=== PATIENT | male | born 1950 | race Caucasian/White ===

== ENCOUNTER 2024-01-04 07:23 | Day surgery (SDC) | payer MEDICARE, OTHER, SELFPAY ==
[2024-01-04] VITALS (14 sets, daily range): BP systolic 130–148; BP diastolic 55–77; BMI 32.8
[2024-01-04] MEDS: NSS 320 ML IV (07:56)
[2024-01-04] MEDS: LOW STRENGTH ASPIRIN 81 MG PO (07:57)
[2024-01-04 08:02] LABS: Glucose - Point of Care 133 mg/dl (70-99)
--- NOTE | 2024-01-04 09:52 | ITS.CL.CATH ---
Slasher Hand - Catheterization
Cardiac Catheterization
Procedure Report:
LEFT HEART CATHETERIZATION
Date of Procedure: January 04, 2024
Procedures performed:
1: Coronary angiography
2: Left ventriculography
Primary Care Physician: Dr. Myles Francisco
Primary Miller Helper: Dr. Иван Herrera
INDICATION: The patient is a 73-year-old man with a complex past medical history including coronary artery disease status post multivessel stenting in 2019, severe peripheral arterial disease status post complex bilateral common femoral
endarterectomy with femorofemoral bypass complicated by infection requiring multiple washouts as well as a free flap graft and ongoing antibiotic suppression, hypertension, COPD, and status post pacemaker for sick sinus syndrome who is reporting
increased fatigue and exertional dyspnea. Nuclear stress testing performed on November 25 suggested fixed infarct in the RCA vascular distribution with only mild mich-infarct ischemia and echocardiography performed December 29 showed preserved LV
systolic function with no significant change from April 2022. Because of his complex groin infection issues, any groin access if necessary would be highly risky.
ACCESS: The patient was prepped and draped in usual sterile fashion. A 6 Japanese sheath was placed in the right radial artery using the Seldinger over the wire technique.
HEMODYNAMIC FINDINGS (mmHg):
LV(s/d,EDP): 135/10, 15
Ao(s/d,m): 130/65, 87
ANGIOGRAPHIC FINDINGS:
Single-plane Left Ventriculography in [facility] Projection: Not done.
Coronary Angiography:
Dominance: Right
Left Main: Heavily calcified but widely patent. Large caliber.
Left Anterior Descending: The left anterior descending artery is heavily calcified throughout its course. The previously placed mid LAD stent is widely patent with diffuse 20% and at worst proximal 40% in-stent restenosis. There are 2 medium
caliber diagonal branches which are widely patent. All vessels have normal distal flow.
Left Circumflex: The left circumflex artery is a medium caliber nondominant vessel that gives rise to a large bifurcating first obtuse marginal branch that has a smooth proximal 50 to 60% stenosis with normal distal flow. The distal circumflex
gives rise to 2 smaller distal OM's that are widely patent. There is [id number] collaterals filling the right-sided PDA and PLV branch system.
Right Coronary: The right coronary artery is a large-caliber vessel that is extensively stented throughout the AV groove. There is a new chronic total occlusion of the ostial/proximal RCA with faint bridging collaterals noted. The distal vessels
fill via faint antegrade collaterals but mostly through [id number] collaterals.
Fluoroscopy Time (min): 3.1
Radiation Dose (mGy): 356
DAP (Gy.cm2): 25
Closure device: None. A TR band was applied for hemostasis at the right wrist.
Complications: None.
ASSESSMENT:
1: Severe single-vessel coronary disease with interval RCA occlusion. This territory is mostly infarcted on nuclear perfusion imaging and is well collateralized from a widely patent left coronary system.
2: Patent previously placed LAD stent with nonobstructive disease in the circumflex as described above.
3: Normal to mildly elevated left ventricular filling pressures.
CONCLUSIONS and RECOMMENDATIONS:
1: Medical therapy for coronary artery disease. Will add amlodipine 2.5 mg daily to Imdur and beta-ismael therapy.
2: Clinical follow-up as scheduled.
Ingrid Wayne M.D.
Copy to: Dr. Myles Francisco
[2024-01-04] MEDS: NSS 1000 IV (10:01)
[2024-01-04 10:06] LABS: Glucose - Point of Care 122 mg/dl (70-99)
== END 2024-01-04 13:20 | disposition home or self-care (01) ==
LOC: CATH 07:23
PROVIDERS: ATTENDING PHYSICIAN Internal Medicine Interventional Cardiology; FAMILY PHYSICIAN Family Medicine; OTHER PHYSICIAN Internal Medicine Cardiovascular Disease
DX: I25.10 Atherosclerotic heart disease of native coronary artery without angina pectoris (principal); Z95.5 Presence of coronary angioplasty implant and graft; I48.91 Unspecified atrial fibrillation; R53.83 Other fatigue; R06.09 Other forms of dyspnea; I10 Essential (primary) hypertension; J44.9 Chronic obstructive pulmonary disease, unspecified; Z95.0 Presence of cardiac pacemaker; I49.5 Sick sinus syndrome; I73.9 Peripheral vascular disease, unspecified; K21.9 Gastro-esophageal reflux disease without esophagitis; E78.00 Pure hypercholesterolemia, unspecified; E11.9 Type 2 diabetes mellitus without complications; Z79.82 Long term (current) use of aspirin; Z79.84 Long term (current) use of oral hypoglycemic drugs; Z79.02 Long term (current) use of antithrombotics/antiplatelets
CPT/HCPCS: 82962; 93458; C1894; Q9967

== ENCOUNTER → 2024-01-19 10:51 | Outpatient (REF) | payer MEDICARE, OTHER, SELFPAY | LOC: RAD 10:51 | PROVIDERS: ATTENDING PHYSICIAN Specialist; FAMILY PHYSICIAN Family Medicine | DX: R13.10 Dysphagia, unspecified (principal) | CPT/HCPCS: 74246 ==

== ENCOUNTER → 2024-04-05 15:50 | Outpatient (REF) | payer MEDICARE, OTHER, SELFPAY ==
[2024-04-05 16:41] LABS: Hemoglobin 11.2 g/dL (13.0-18.0); Mean Corp Hgb Conc. 32.9 g/dL (33.0-37.0); Mean Corpuscular Hgb 29.3 pg (27.0-31.0); Mean Platelet Volume 9.1 fL (7.4-10.4); Platelet Count 230 10^3/uL (130-400); Red Blood Cell Count 3.82 10^6/uL (4.70-6.10); Red Cell Dist. Width 13.2 % (11.5-14.5)
[2024-04-05 17:01] LABS: Iron 47 ug/dl (49-181); LDH 176 U/L (120-246)
[2024-04-05 17:10] LABS: Percent Saturation 19 % (20-50); Total Iron Binding Capacity 247 ug/dl (261-462)
[2024-04-05 17:18] LABS: Atypical Lymphocytes 4 %; Band Neutrophils 0 % (0-3); Eosinophils 10 % (0-6); Lymphocytes 47 % (20-51); Monocytes 22 % (2-9); Pathologist Reviewed No; Segmented Neutrophils 17 % (42-75)
[2024-04-05 17:19] LABS: Normal RBC Morphology Yes; Platelets Checked Yes; Total Cells Counted 100
[2024-04-05 17:33] LABS: Absolute Neutrophils 0.5 10^3/uL (1.4-6.5)
[2024-04-05 17:39] LABS: Ferritin 74.9 ng/ml (17.9-464.0)
[2024-04-05 18:11] LABS: Folate 7.9 ng/ml (2.76-20); Vitamin B12 369 pg/ml (239-931)
== END ==
LOC: REG 15:50
PROVIDERS: ATTENDING PHYSICIAN Internal Medicine Hematology & Oncology
DX: C83.89 Other non-follicular lymphoma, extranodal and solid organ sites (principal); R22.32 Localized swelling, mass and lump, left upper limb; D50.9 Iron deficiency anemia, unspecified; D51.9 Vitamin B12 deficiency anemia, unspecified
CPT/HCPCS: 36415; 82607; 82728; 82746; 83540; 83550; 83615; 85025

== ENCOUNTER → 2024-05-08 12:56 | Outpatient (REF) | payer MEDICARE, OTHER, SELFPAY ==
[2024-05-08 14:49] LABS: Urine Albumin Negative (Neg - Trace); Urine Bilirubin Negative (Negative); Urine Character Clear (Clear); Urine Color Yellow; Urine Glucose Negative (Negative); Urine Ketone Negative (Negative); Urine Leukocyte Negative (Negative); Urine Nitrite Negative (Negative); Urine Occult Blood Negative (Negative); Urine Urobilinogen Negative (Neg - 1+)
== END ==
LOC: CLAB 12:56
PROVIDERS: ATTENDING PHYSICIAN Surgery
DX: N39.0 Urinary tract infection, site not specified (principal)
CPT/HCPCS: 81003; 87086

== ENCOUNTER → 2024-05-25 09:22 | Outpatient (REF) | payer MEDICARE, OTHER, SELFPAY ==
[2024-05-25 10:20] LABS: % Lymphocytes 41.1 % (20.5-51.1); % Monocytes 15.7 % (1.7-9.3); % Neutrophils 38.2 % (42.2-75.2); Absolute Eosinophils 0.2 10^3/uL (0-0.7); Absolute Lymphocytes 1.7 10^3/uL (1.2-3.4); Absolute Monocytes 0.6 10^3/uL (0.1-0.6); Absolute Neutrophils 1.5 10^3/uL (1.4-6.5); Hematocrit 35.5 % (39.0-52.0); Hemoglobin 11.4 g/dL (13.0-18.0); Mean Corp Hgb Conc. 32.1 g/dL (33.0-37.0); Mean Corpuscular Hgb 28.8 pg (27.0-31.0); Mean Corpuscular Volume 89.6 fL (80.0-94.0); Mean Platelet Volume 9.1 fL (7.4-10.4); Nucleated Red Blood Cells % 0 % (-); Platelet Count 227 10^3/uL (130-400); Red Blood Cell Count 3.96 10^6/uL (4.70-6.10)
[2024-05-25 10:37] LABS: ALT (SGPT) 19 U/L (0-50); AST (SGOT) 28 U/L (17-59); Albumin 4.1 g/dl (3.5-5.0); Alkaline Phosphatase 134 U/L (38-126); Blood Urea Nitrogen 10 mg/dl (9-20); Calcium 9.1 mg/dl (8.4-10.2); Carbon Dioxide 30 mmol/L (22-30); Chloride 102 mmol/L (98-107); Glucose 128 mg/dl (70-99); Iron 73 ug/dl (49-181); LDH 170 U/L (120-246); Potassium 4.2 mmol/L (3.5-5.1); Sodium 140 mmol/L (135-145); Total Bilirubin 0.4 mg/dl (0.2-1.3); Total Protein 7.4 g/dl (6.3-8.2); eGFR > 60.00
[2024-05-25 10:47] LABS: Percent Saturation 31 % (20-50); Total Iron Binding Capacity 231 ug/dl (261-462)
[2024-05-25 10:55] LABS: Free T4 1.01 ng/dl (0.78-2.19)
[2024-05-25 11:08] LABS: TSH 4.31 uIU/ml (0.47-4.68)
[2024-05-25 11:45] LABS: Folate 7.2 ng/ml (2.76-20); Vitamin B12 694 pg/ml (239-931)
[2024-05-28 00:06] LABS: Total T3 (Sendout) 105 ng/dL (80-200)
== END ==
LOC: REG 09:22
PROVIDERS: ATTENDING PHYSICIAN Internal Medicine Hematology & Oncology
DX: C83.89 Other non-follicular lymphoma, extranodal and solid organ sites (principal); R22.32 Localized swelling, mass and lump, left upper limb; D50.9 Iron deficiency anemia, unspecified; C43.72 Malignant melanoma of left lower limb, including hip; D51.9 Vitamin B12 deficiency anemia, unspecified; E78.5 Hyperlipidemia, unspecified
CPT/HCPCS: 36415; 80053; 82607; 82728; 82746; 83540; 83550; 83615; 84439; 84443; 84480; 85025

== ENCOUNTER → 2024-06-08 08:35 | Outpatient (REF) | payer MEDICARE, OTHER, SELFPAY | LOC: RAD 08:35 | PROVIDERS: ATTENDING PHYSICIAN Internal Medicine Hematology & Oncology; REFERRING PHYSICIAN Otolaryngology | DX: C83.89 Other non-follicular lymphoma, extranodal and solid organ sites (principal); R22.32 Localized swelling, mass and lump, left upper limb; D50.9 Iron deficiency anemia, unspecified; C43.72 Malignant melanoma of left lower limb, including hip; D38.0 Neoplasm of uncertain behavior of larynx | CPT/HCPCS: 70470; 70491; Q9967 ==

== ENCOUNTER → 2024-06-19 08:52 | Outpatient (REF) | payer MEDICARE, OTHER, SELFPAY ==
[2024-06-19 11:46] LABS: Hematocrit 32.9 % (39.0-52.0); Hemoglobin 11.1 g/dL (13.0-18.0); Mean Corp Hgb Conc. 33.7 g/dL (33.0-37.0); Mean Corpuscular Hgb 29.3 pg (27.0-31.0); Mean Corpuscular Volume 86.8 fL (80.0-94.0); Mean Platelet Volume 9.1 fL (7.4-10.4); Platelet Count 211 10^3/uL (130-400); Red Blood Cell Count 3.79 10^6/uL (4.70-6.10); Red Cell Dist. Width 14.3 % (11.5-14.5); White Blood Cell Count 2.7 10^3/uL (4.8-10.8)
[2024-06-19 12:08] LABS: ALT (SGPT) 10 U/L (0-50); AST (SGOT) 19 U/L (17-59); Albumin 3.9 g/dl (3.5-5.0); Alkaline Phosphatase 123 U/L (38-126); Blood Urea Nitrogen 14 mg/dl (9-20); Calcium 9.3 mg/dl (8.4-10.2); Carbon Dioxide 27 mmol/L (22-30); Chloride 105 mmol/L (98-107); Glucose 110 mg/dl (70-99); Potassium 4.2 mmol/L (3.5-5.1); Sodium 141 mmol/L (135-145); Total Bilirubin 0.6 mg/dl (0.2-1.3); Total Protein 6.9 g/dl (6.3-8.2); eGFR > 60.00
[2024-06-19 12:17] LABS: Absolute Neutrophils -Man Diff 0.3 10^3/uL (1.4-6.5); Band Neutrophils 6 % (0-3); Eosinophils 6 % (0-6); Lymphocytes 50 % (20-51); Metamyelocytes 1 % (-); Monocytes 30 % (2-9); Normal RBC Morphology Yes; Platelets Checked Yes; Segmented Neutrophils 7 % (42-75)
[2024-06-19 12:22] LABS: Total Cells Counted 100
[2024-06-19 12:39] LABS: TSH 2.48 uIU/ml (0.47-4.68)
[2024-06-21 01:30] LABS: Total T3 (Sendout) 85 ng/dL (80-200)
== END ==
LOC: DHVS 08:52
PROVIDERS: ATTENDING PHYSICIAN Surgery Vascular Surgery; REFERRING PHYSICIAN Internal Medicine Hematology & Oncology
DX: I73.9 Peripheral vascular disease, unspecified (principal); C83.89 Other non-follicular lymphoma, extranodal and solid organ sites; R22.32 Localized swelling, mass and lump, left upper limb; D50.9 Iron deficiency anemia, unspecified; C43.72 Malignant melanoma of left lower limb, including hip; E78.5 Hyperlipidemia, unspecified
CPT/HCPCS: 36415; 80053; 84439; 84443; 84480; 85025; 93922; 93925

== ENCOUNTER 2024-07-02 16:12 | Emergency (ER) | payer MEDICARE, OTHER, SELFPAY ==
[2024-07-02 16:53] LABS: Hematocrit 33.5 % (39.0-52.0); Hemoglobin 10.9 g/dL (13.0-18.0); Mean Corp Hgb Conc. 32.5 g/dL (33.0-37.0); Mean Corpuscular Hgb 28.9 pg (27.0-31.0); Mean Corpuscular Volume 88.9 fL (80.0-94.0); Mean Platelet Volume 9.6 fL (7.4-10.4); Platelet Count 191 10^3/uL (130-400); Red Blood Cell Count 3.77 10^6/uL (4.70-6.10); Red Cell Dist. Width 14.6 % (11.5-14.5); White Blood Cell Count 28.5 10^3/uL (4.8-10.8)
[2024-07-02 17:11] LABS: ALT (SGPT) 11 U/L (0-50); AST (SGOT) 19 U/L (17-59); Albumin 3.3 g/dl (3.5-5.0); Alkaline Phosphatase 132 U/L (38-126); Blood Urea Nitrogen 14 mg/dl (9-20); Calcium 8.3 mg/dl (8.4-10.2); Carbon Dioxide 27 mmol/L (22-30); Chloride 106 mmol/L (98-107); Glucose 150 mg/dl (70-99); Potassium 3.6 mmol/L (3.5-5.1); Sodium 141 mmol/L (135-145); Total Bilirubin 0.3 mg/dl (0.2-1.3); Total Protein 6.1 g/dl (6.3-8.2); eGFR > 60.00
[2024-07-02 18:00] LABS: % Basophils 0.5 % (0-2); % Eosinophils 0.5 % (0-6); % Immature Granulocytes 2.5 % (0-0.5); % Monocytes 4.5 % (1.7-9.3); Absolute Basophils 0.1 10^3/uL (0-0.2); Absolute Eosinophils 0.1 10^3/uL (0-0.7); Absolute Immature Granulocytes 0.7 10^3/uL (0-0.05); Absolute Monocytes 1.3 10^3/uL (0.1-0.6); Absolute Neutrophils 24.2 10^3/uL (1.4-6.5); Nucleated Red Blood Cells % 0 % (-)
[2024-07-02 18:08] VITALS: BMI 32.2
[2024-07-02 18:16] VITALS: BP 119/60
[2024-07-02] MEDS: NSS 500 IV (18:16)
--- NOTE | 2024-07-02 18:18 | ED.GENMED ---
History of Present Illness
General
Chief Complaint: Abdominal Symptoms
Source: patient
Exam Limitations: none
Time Seen by Provider: 07/02/24 17:58
History of Present Illness
History of Present Illness:
This is a 74 year old male that comes in with c/o diarrhea for 3 weeks. States that he is being treated for Cancer and is on Kaytruda. States that his Oncologist said that it could be due to this. States that he has abd tenderness all over, has
been nauseated and vomiting. States that his appetite is decreased. States that he also has a headache. Denies any fever, chills, chest pain, SOB, dizziness, urinary burning.
Past History
Past History
ED Past Medical History: Arrthythmia (A FIB), CAD, Cancer (Melanoma, B-cell Non Hodgkins lymphoma, Prostate CA), COPD, GERD, HTN, Hypercholesterolemia, IDDM, Psychiatric (Anxiety, Depression) and Other (Neuropathy, Balance issues, Tremors, CPAP,
AAA, Iron def anemia, ADHD)
ED Past Surgical History: Cardiac (Pacemaker, Stents X 6 (two are occluded) ), Orthopedic (C2-C7 fusion, Left ankle surgery, Right total hip replacement, Right femoral bypass, ) and Other (Stent left groin, Gastric bypass, Cataracts)
Social History
Tobacco: Former smoker
Alcohol: None
Drug: None
Personal:
Living: alone
Review of Systems
Review of Systems
All Other Systems: ROS reviewed and negative except as documented in HPI and ROS
Constitutional: Reports no symptoms; Denies fever or chills
EENT: Reports no symptoms
Respiratory: Reports no symptoms; Denies cough or trouble breathing
Cardiac: Reports no symptoms; Denies chest pain
ABD/GI: Reports abdominal pain, nausea, vomiting and diarrhea
: Reports no symptoms; Denies dysuria, frequency or urgency
Musculoskeletal: Reports no symptoms
Skin: Reports no symptoms
Neurological: Reports headache; Denies dizzy
Psychiatric: Reports no symptoms
Phy Exam
General Physical Exam
General Presentation: no apparent distress
General age: appears stated age
General Skin: warm and dry
General Habitus: elderly
General Mental: alert
General Hydration: appears well hydrated
ENT Exam
ENT Exam: TM's normal, pharynx normal and neck supple
Eye Exam
Eye Exam: EOMI
Cardiovascular Exam
Cardiovascular Exam: regular rate/rhythm, normal peripheral pulses and other (Murmur)
Pulmonary Exam
Pulmonary Exam: lungs clear, no respiratory distress, no rales, chest non tender, no crackles, no rhonchi, no wheezing and no cough
Gastrointestinal Exam
Gastrointestinal Exam: normal bowel sounds, soft, no organomegaly, no pulsatile mass, non distended and tender (Generalized tenderness with palpation)
Musculoskeletal Exam
Musculoskeletal Exam: full ROM and edema (+1 pitting edema lower legs)
Skin Exam
Skin Exam: normal color, warm/dry, no rash and no petechia
Psychiatric Exam
Psychiatric Exam: normal mood/affect
Course
Orders/Labs/Results
Orders:
Orders
07/02/24 16:33
Complete Blood Count/With Diff Urgent
Comprehensive Metabolic Panel Urgent
07/02/24 18:15
0.9% Sodium Chloride 500 ml [Nss] 500 ml IV BOLUS
07/02/24 18:17
CT Abd/pelvis W Iv Cont Urgent
Comment:
Reason For Exam: Generalized abd tenderness with palpation
STOOL [C difficile Antigen & Toxins] Urgent
REGIS Source: Feces/Stool
Specimen Description:
Stool Culture Urgent
REGIS Source: Feces/Stool
Specimen Description:
Stool For WBC Urgent
REGIS Source: Feces/Stool
Specimen Description:
Abnormal Lab Results
07/02/24
16:33
WBC 28.5 H 10^3/uL
(4.8-10.8)
RBC 3.77 L 10^6/uL
(4.70-6.10)
Hgb 10.9 L g/dL
(13.0-18.0)
Hct 33.5 L %
(39.0-52.0)
MCHC 32.5 L g/dL
(33.0-37.0)
RDW 14.6 H %
(11.5-14.5)
Abs Immat Gran (auto) 0.7 H 10^3/uL
(0-0.05)
Absolute Neuts (auto) 24.2 H 10^3/uL
(1.4-6.5)
Absolute Monos (auto) 1.3 H 10^3/uL
(0.1-0.6)
Immature Gran % 2.5 H %
(0-0.5)
Neutrophils % 85.0 H %
(42.2-75.2)
Lymphocytes % 7.0 L %
(20.5-51.1)
Glucose 150 H mg/dl
(70-99)
Calcium 8.3 L mg/dl
(8.4-10.2)
Alkaline Phosphatase 132 H U/L
(38-126)
Total Protein 6.1 L g/dl
(6.3-8.2)
Albumin 3.3 L g/dl
(3.5-5.0)
07/02/24 16:33
07/02/24 16:33
Leukocytosis (Patient getting injections due to Chemo), H/H low( consistent with priot labs), Abs Neuts elevated. Glucose nonfasting. Alk phos slightly elevated. Total protein slightly low. Albumin slightly low.
Vital Signs
Initial and Last Documented VS:
Initial Vital Signs
Temp Pulse Resp Pulse Ox
98.8 F 70 18 97
07/02/24 16:23 07/02/24 16:23 07/02/24 16:23 07/02/24 16:23
Last Documented Vital Signs
Temp Pulse Resp BP Pulse Ox
98.8 F 70 16 119/60 94
07/02/24 16:23 07/02/24 18:16 07/02/24 18:16 07/02/24 18:16 07/02/24 18:16
MDM/Problems Addressed
Differential Diagnosis Includes:
Medication related. C-diff, Colitis.
MDM/Problems Addressed:
This is a 74 year old male that comes in with c/o abd discomfort and diarrhea for he past 3 weeks. States that he has never had diarrhea like this. States that the Oncologist said that it could be due to Keytruda.
Will get labs, CT scan, IV fluids.
Back into see patient. Explained that his blood work shows his elevated WBC which is most likely due to his injections that he is getting. CT is negative for any acute process. Will have patient stay away form Milk and milk products. Follow up with
the Oncologist. Increase his water intake to 8-8oz glasses daily. Return with any concerns.
Chronic conditions affecting care: Cancer
Acute Exacerbation and/or Progression of Chronic Illness: Cancer
*Radiology
Radiology exam reviewed: radiology read reviewed (CT-Prominent gallbladder with possible tiny stones. IF clinically warranted, abdominal ultasound could be obtaiined for more complete evaluation. Symmetric renal excretion. Small simple left renal
cyst. Subcentimeter low-attenuation right renal lesion too small to characterize. Marked beam hardening) and all reviewed NAD by ED Provider (CT cont-artifact from right hip arthroplasty significantly limiting evaluation of the soft tissues of the
true pelvis. Scattered splenic calcifications again seen compatible with old granulomatous disease. )
*Pulse Oximetry
Patient hypoxic: no
*EKG
Interpreted by ED Provider?: NA
Rate: EKG- N/A
*Tentmaker Interpretation
Rate: Tentmaker- N/A
*Critical Care Note
Total Time (30-74mins, 75-104mins- exclusive of procedures): Not Applicable
ED Attending Note
-
Portions of this chart may have been created with voice recognition software.� Occasional wrong word or��sound alike� substitutions may have occurred due to the inherent limitations of voice recognition software.
Discharge Plan
Departure
Patient Disposition: Home (Routine Discharge)
Date of Disposition: 07/02/24
Time of Disposition: 20:25
Patient with high blood pressure during this ER visit?: No
Condition: Good
Covid-19: Not Applicable
Discharge Problem:
Abdominal pain, Diarrhea
Instructions: Diarrhea in teens and adults, Abdominal Pain
Prescriptions:
No Action
modafinil 200 MG tablet
200 mg PO BID Qty: 60 0RF
pravastatin 40 MG tablet
40 mg PO HS
aspirin 81 MG tablet,delayed release (DR/EC)
81 mg PO HS
nitroglycerin 0.4 MG tablet, sublingual
0.4 mg sublingual [id number] PRN (Reason: chest pain)
furosemide 40 MG tablet
40 mg PO DAILY
metoprolol succinate 50 mg Tablet Extended Release 24 Hr
50 mg PO HS
albuterol sulfate 2.5 mg /3 mL (0.083 %) Solution For Nebulization
2.5 mg INHALATION R Q4 PRN (Reason: sob)
Janumet XR 100-1,000 mg Tablet, Er Multiphase 24 Hr
1 tab PO DAILY@1999
clopidogrel 75 MG tablet
75 mg PO DAILY@1999
isosorbide mononitrate 30 mg Tablet Extended Release 24 Hr
60 mg PO DAILY
gabapentin 300 mg Capsule
600 mg PO QID@08,12,16,20
budesonide-formoterol [Symbicort] 160-4.5 mcg/actuation Hfa Aerosol Inhaler
2 puff INHALATION BID
sulfamethoxazole-trimethoprim 800-160 mg Tablet
1 tab PO DAILY Qty: 0 0RF
duloxetine 30 mg Capsule,Delayed Release(Dr/Ec)
30 mg PO DAILY
lamotrigine [Lamictal ODT] 50 mg Tablet,Disintegrating
50 mg PO DAILY
amlodipine 2.5 mg tablet
2.5 mg PO DAILY Qty: 1 0RF
Referrals:
UNKNOWN - PT DOES,NOT KNOW [Family Provider] -
Activity Restrictions/Additional Instructions:
As discussed, your blood work shows that your WBC are elevated. Your Hgb is slightly low. Your CT scan is negative for any acute process that would cause your diarrhea. Please increase your water intake to 8-8oz daily. Follow up with the Oncologist
for further evaluation. A stool specimen has been sent. IF this would come back showing C-diff you will be called and started on an antibiotic. IF YOU HAVE FEVER, INCREASED OR CHANGING ABD PAIN, OR YOU HAVE ANY OTHER CONCERNS PLEASE RETURN TO THE
EMERGENCY ROOM.
Interventions
Interventions:
*Risk Screen - Suicide Last Done: 07/02/24 16:23
*General Assessment Last Done: 07/02/24 16:23
*Neglect/Abuse Screening Last Done: 07/02/24 16:23
*ED COVID-19 Vaccine History Last Done: 07/02/24 16:23
CQ-Bhztqu-Ncsfpkehbw Assessment Last Done: 07/02/24 18:06
Discharge Date and Time
Print Language: DJIBOUTIAN
[2024-07-02 20:53] VITALS: BP 125/54
== END 2024-07-02 20:55 | disposition home or self-care (01) ==
LOC: EMR 16:12
PROVIDERS: Emergency Medicine; EMERGENCY PHYSICIAN Student in an Organized Health Care Education/Training Program
DX: R10.9 Unspecified abdominal pain (principal); R19.7 Diarrhea, unspecified; R11.2 Nausea with vomiting, unspecified; R51.9 Headache, unspecified; N28.1 Cyst of kidney, acquired; D73.89 Other diseases of spleen; C43.9 Malignant melanoma of skin, unspecified; I48.91 Unspecified atrial fibrillation; I25.10 Atherosclerotic heart disease of native coronary artery without angina pectoris; J44.9 Chronic obstructive pulmonary disease, unspecified; E78.00 Pure hypercholesterolemia, unspecified; E11.36 Type 2 diabetes mellitus with diabetic cataract; F32.A Depression, unspecified; F41.9 Anxiety disorder, unspecified; I10 Essential (primary) hypertension; K21.9 Gastro-esophageal reflux disease without esophagitis; F90.9 Attention-deficit hyperactivity disorder, unspecified type; Z95.0 Presence of cardiac pacemaker; Z95.5 Presence of coronary angioplasty implant and graft; Z96.641 Presence of right artificial hip joint; Z79.4 Long term (current) use of insulin; Z79.82 Long term (current) use of aspirin; Z85.46 Personal history of malignant neoplasm of prostate; Z85.72 Personal history of non-Hodgkin lymphomas; Z87.891 Personal history of nicotine dependence; M43.22 Fusion of spine, cervical region; Z98.84 Bariatric surgery status; Z88.1 Allergy status to other antibiotic agents; Z88.8 Allergy status to other drugs, medicaments and biological substances
CPT/HCPCS: 99285; 96360; 74177; 80053; 85025; 87045; 87046; 87324; 87427; 87449; 89055; Q9967

== ENCOUNTER → 2024-07-04 13:25 | Outpatient (REF) | payer MEDICARE, OTHER, SELFPAY ==
[2024-07-04 11:51] LABS: % Basophils 0.2 % (0-2); % Eosinophils 0.8 % (0-6); % Immature Granulocytes 0.7 % (0-0.5); % Lymphocytes 9.6 % (20.5-51.1); % Monocytes 6.1 % (1.7-9.3); % Neutrophils 82.6 % (42.2-75.2); Absolute Eosinophils 0.1 10^3/uL (0-0.7); Absolute Immature Granulocytes 0.1 10^3/uL (0-0.05); Absolute Lymphocytes 1.6 10^3/uL (1.2-3.4); Absolute Neutrophils 13.8 10^3/uL (1.4-6.5); Hematocrit 34.3 % (39.0-52.0); Hemoglobin 11.1 g/dL (13.0-18.0); Mean Corp Hgb Conc. 32.4 g/dL (33.0-37.0); Mean Corpuscular Volume 89.6 fL (80.0-94.0); Mean Platelet Volume 9.4 fL (7.4-10.4); Platelet Count 191 10^3/uL (130-400); Red Blood Cell Count 3.83 10^6/uL (4.70-6.10); Red Cell Dist. Width 14.6 % (11.5-14.5); White Blood Cell Count 16.7 10^3/uL (4.8-10.8)
[2024-07-04 14:01] LABS: ALT (SGPT) 11 U/L (0-50); AST (SGOT) 23 U/L (17-59); Albumin 3.4 g/dl (3.5-5.0); Alkaline Phosphatase 145 U/L (38-126); Blood Urea Nitrogen 11 mg/dl (9-20); Calcium 8.3 mg/dl (8.4-10.2); Carbon Dioxide 28 mmol/L (22-30); Chloride 104 mmol/L (98-107); Glucose 103 mg/dl (70-99); Magnesium 1.7 mg/dl (1.6-2.3); Potassium 3.6 mmol/L (3.5-5.1); Sodium 139 mmol/L (135-145); Total Bilirubin 0.5 mg/dl (0.2-1.3); Total Protein 6.2 g/dl (6.3-8.2); eGFR > 60.00
== END ==
LOC: OIDL 13:25
PROVIDERS: ATTENDING PHYSICIAN Internal Medicine Hematology & Oncology
DX: C83.89 Other non-follicular lymphoma, extranodal and solid organ sites (principal)
CPT/HCPCS: 80053; 83735; 85025

== ENCOUNTER → 2024-07-06 11:55 | Outpatient (REF) | payer MEDICARE, OTHER, SELFPAY | LOC: REG 11:55 | PROVIDERS: ATTENDING PHYSICIAN Internal Medicine Hematology & Oncology | DX: C83.89 Other non-follicular lymphoma, extranodal and solid organ sites (principal); R22.32 Localized swelling, mass and lump, left upper limb; D50.9 Iron deficiency anemia, unspecified; C43.72 Malignant melanoma of left lower limb, including hip | CPT/HCPCS: 87045; 87046; 87324; 87328; 87329; 87427; 87449; 89055 ==

== ENCOUNTER → 2024-07-09 15:15 | Outpatient (REF) | payer MEDICARE, OTHER, SELFPAY ==
[2024-07-09 15:44] LABS: ALT (SGPT) 36 U/L (0-50); AST (SGOT) 34 U/L (17-59); Albumin 3.4 g/dl (3.5-5.0); Alkaline Phosphatase 187 U/L (38-126); Blood Urea Nitrogen 15 mg/dl (9-20); Calcium 8.7 mg/dl (8.4-10.2); Carbon Dioxide 29 mmol/L (22-30); Chloride 105 mmol/L (98-107); Glucose 151 mg/dl (70-99); Magnesium 2.1 mg/dl (1.6-2.3); Potassium 3.7 mmol/L (3.5-5.1); Sodium 141 mmol/L (135-145); Total Bilirubin 0.3 mg/dl (0.2-1.3); Total Protein 6.3 g/dl (6.3-8.2); eGFR > 60.00
[2024-07-09 15:53] LABS: NT-proBNP 1900 pg/ml
[2024-07-09 16:16] LABS: % Basophils 0.2 % (0-2); % Eosinophils 0.1 % (0-6); % Immature Granulocytes 1.5 % (0-0.5); % Lymphocytes 3.8 % (20.5-51.1); % Monocytes 1.7 % (1.7-9.3); % Neutrophils 92.7 % (42.2-75.2); Absolute Basophils 0.1 10^3/uL (0-0.2); Absolute Immature Granulocytes 0.4 10^3/uL (0-0.05); Absolute Monocytes 0.4 10^3/uL (0.1-0.6); Absolute Neutrophils 23.7 10^3/uL (1.4-6.5); Hemoglobin 10.8 g/dL (13.0-18.0); Mean Corp Hgb Conc. 32.7 g/dL (33.0-37.0); Mean Corpuscular Hgb 29.2 pg (27.0-31.0); Mean Corpuscular Volume 89.2 fL (80.0-94.0); Mean Platelet Volume 9.6 fL (7.4-10.4); Nucleated Red Blood Cells % 0 % (-); Platelet Count 276 10^3/uL (130-400); Red Cell Dist. Width 15.2 % (11.5-14.5); White Blood Cell Count 25.6 10^3/uL (4.8-10.8)
== END ==
LOC: OIDL 15:15
PROVIDERS: ATTENDING PHYSICIAN Nurse Practitioner Adult Health
DX: C83.89 Other non-follicular lymphoma, extranodal and solid organ sites (principal)
CPT/HCPCS: 80053; 83735; 83880; 85025

== ENCOUNTER → 2024-07-20 06:11 | Day surgery (SDC) | payer MEDICARE, OTHER, SELFPAY ==
[2024-07-20 08:25] LABS: Glucose - Point of Care 110 mg/dl (70-99)
== END ==
LOC: GI 06:11
PROVIDERS: ATTENDING PHYSICIAN Specialist
DX: R19.7 Diarrhea, unspecified (principal)
CPT/HCPCS: 45331; 88305; 82962; 88342

== ENCOUNTER 2024-08-01 10:28 | Emergency (ER) | payer MEDICARE, OTHER, SELFPAY ==
[2024-08-01 10:29] VITALS: BP 138/58
[2024-08-01 11:18] LABS: ALT (SGPT) 17 U/L (0-50); AST (SGOT) 18 U/L (17-59); Albumin 3.9 g/dl (3.5-5.0); Alkaline Phosphatase 93 U/L (38-126); Blood Urea Nitrogen 12 mg/dl (9-20); Calcium 9.1 mg/dl (8.4-10.2); Carbon Dioxide 32 mmol/L (22-30); Chloride 99 mmol/L (98-107); Glucose 188 mg/dl (70-99); Potassium 4.3 mmol/L (3.5-5.1); Sodium 141 mmol/L (135-145); Total Bilirubin 0.8 mg/dl (0.2-1.3); Total Protein 6.5 g/dl (6.3-8.2); eGFR > 60.00
[2024-08-01 11:20] LABS: Hematocrit 36.1 % (39.0-52.0); Hemoglobin 12.2 g/dL (13.0-18.0); Mean Corp Hgb Conc. 33.8 g/dL (33.0-37.0); Mean Corpuscular Hgb 29.5 pg (27.0-31.0); Mean Corpuscular Volume 87.2 fL (80.0-94.0); Mean Platelet Volume 9.9 fL (7.4-10.4); Platelet Count 183 10^3/uL (130-400); Red Blood Cell Count 4.14 10^6/uL (4.70-6.10); Red Cell Dist. Width 14.8 % (11.5-14.5); White Blood Cell Count 2.8 10^3/uL (4.8-10.8)
[2024-08-01 12:22] LABS: % Neutrophils 59.2 % (42.2-75.2)
[2024-08-01 12:30] LABS: % Eosinophils 3.2 % (0-6); % Immature Granulocytes 0.4 % (0-0.5); % Lymphocytes 21.1 % (20.5-51.1); % Monocytes 16.1 % (1.7-9.3); Absolute Eosinophils 0.1 10^3/uL (0-0.7); Absolute Lymphocytes 0.6 10^3/uL (1.2-3.4); Absolute Monocytes 0.5 10^3/uL (0.1-0.6); Absolute Neutrophils 1.7 10^3/uL (1.4-6.5); Nucleated Red Blood Cells % 0 % (-)
[2024-08-01] MEDS: DILAUDID 0.5 MG IV (12:36)
--- NOTE | 2024-08-01 12:42 | ED.GENMED ---
History of Present Illness
General
Chief Complaint: Male Genito-Urinary Symptoms
Source: patient
Time Seen by Provider: 08/01/24 11:26
History of Present Illness
History of Present Illness:
74-year-old male with past medical history of AAA, atrial fibrillation, CAD, status post femorofemoral bypass surgery with postoperative complication/infection presenting to the emergency department from outpatient vascular office for evaluation of
pain and swelling of the right groin with vascular surgery being concern for possible pseudoaneurysm versus infectious collection. Patient had been on prophylactic antibiotics but had self discontinued due to side effects from the medication and
did not wish to be restarted on any of these medications. He denies any fevers. He reported in triage increased urination but denies this to me but does admit to feeling fatigued. Patient is unaware of any fevers. He does admit to some diarrhea
which she states started after getting a Keytruda injection but this seems to be slightly improved from when it initially started a few weeks ago.
Past History
Past History
ED Past Medical History: Arrthythmia (A FIB), CAD, Cancer (Melanoma, B-cell Non Hodgkins lymphoma, Prostate CA), COPD, GERD, HTN, Hypercholesterolemia, IDDM, Psychiatric (Anxiety, Depression) and Other (Neuropathy, Balance issues, Tremors, CPAP,
AAA, Iron def anemia, ADHD)
ED Past Surgical History: Cardiac (Pacemaker, Stents X 6 (two are occluded) ), Orthopedic (C2-C7 fusion, Left ankle surgery, Right total hip replacement, Right femoral bypass, ) and Other (Stent left groin, Gastric bypass, Cataracts)
Social History
Tobacco: Former smoker
Alcohol: None
Drug: None
Personal:
Living: alone
Review of Systems
Review of Systems
All Other Systems: ROS reviewed and negative except as documented in HPI and ROS
Phy Exam
Physical Exam
Physical Exam:
GENERAL: Alert , in no apparent distress
EYE: clear conjunctiva b/l
HEAD: NCAT
ENT: o/p clr, mmm.
ABDOMEN: Soft, without focal tenderness, no r/g, no cvat,
NEUROLOGICAL: Alert and oriented
SKIN: Warm and dry, skin intact. Well-healed surgical incision to the right groin/thigh with moderate tenderness to palpation overlying. There is no overlying erythema.
MUSCULOSKELETAL: No edema, well perfused. Palpable femoral pulses b/l
PSYCH: Normal and appropriate interaction.
Scores
Heart Failure Risk
Heart Failure Risk Score: Not Applicable
Heart Score for Chest Pain Patients
STEMI patient?: Not applicable
Withdrawal Assessment of Alcohol
Withdrawal Assessment Completed?: Not applicable
Course
Orders/Labs/Results
Orders:
Orders
08/01/24 10:46
CMP [Comprehensive Metabolic Panel] Urgent
Complete Blood Count/With Diff Urgent
08/01/24 11:59
HYDROmorphone [Dilaudid] 0.5 mg IV NOW STA
08/01/24 12:27
CT Angio Abd/Pelvis w/wo IV [CT Abd/pelvis Angio W/wo Iv] Urgent
Comment:
Reason For Exam: right sided groin edema/pain, s/p fem-fem bypass
08/01/24 12:40
Urinalysis Reflex To Culture Urgent
Date Specimen was Collected: 08/01/24
Time Specimen was Collected: 12:38
Abnormal Lab Results
08/01/24
10:46
WBC 2.8 L 10^3/uL
(4.8-10.8)
RBC 4.14 L 10^6/uL
(4.70-6.10)
Hgb 12.2 L g/dL
(13.0-18.0)
Hct 36.1 L %
(39.0-52.0)
RDW 14.8 H %
(11.5-14.5)
Absolute Lymphs (auto) 0.6 L 10^3/uL
(1.2-3.4)
Monocytes % 16.1 H %
(1.7-9.3)
Carbon Dioxide 32 H mmol/L
(22-30)
Creatinine 0.6 L mg/dL
(0.7-1.3)
Glucose 188 H mg/dl
(70-99)
08/01/24 10:46
08/01/24 10:46
Vital Signs
Initial and Last Documented VS:
Initial Vital Signs
Temp Pulse Resp BP Pulse Ox
98.1 F 82 18 138/58 96
08/01/24 10:08/01/24 10:08/01/24 10:08/01/24 10:08/01/24 10:29
Last Documented Vital Signs
Temp Pulse Resp BP Pulse Ox
98.1 F 82 18 138/58 96
08/01/24 10:29 08/01/24 10:29 08/01/24 10:29 08/01/24 10:29 08/01/24 10:29
MDM/Problems Addressed
Differential Diagnosis Includes:
Pseudoaneurysm, seroma, abscess, postoperative pain
MDM/Problems Addressed:
74-year-old male presenting the emergency department for evaluation from outpatient vascular surgery office with concern for pseudoaneurysm versus infectious etiology status post femorofemoral bypass surgery. Patient without fevers. Notes moderate
pain at this time at rest. Vascular surgery requesting CT angio of the abdomen and pelvis. They will consult pending completion of CT. Half milligram of Dilaudid ordered for pain control.
Chronic conditions affecting care: Other (Previous vascular disease/surgery)
*Radiology
Radiology exam reviewed: radiology read reviewed
*Pulse Oximetry
Patient hypoxic: no
*Critical Care Note
Total Time (30-74mins, 75-104mins- exclusive of procedures): Not Applicable
Data Reviewed
Review of Other/Old Records Reveals: Labs, Records, Operative Reports and Discharge Summary
Source: patient and records
Patient Management
Discussion with other providers: Senior It Business Analyst
Escalation/DeEscalation of care consider admission/obs:
Patient seen by vascular team. No acute issues on CTA. No further recommendations. Can continue outpatient course of treatments. Stable for d/c home.
Patient updated on all findings. Aware of return precautions to the ER.
ED Attending Note
-
Portions of this chart may have been created with voice recognition software.� Occasional wrong word or��sound alike� substitutions may have occurred due to the inherent limitations of voice recognition software.
Discharge Plan
Departure
Patient Disposition: Home (Routine Discharge)
Date of Disposition: 08/01/24
Time of Disposition: 14:01
Patient with high blood pressure during this ER visit?: No
Discharge Problem:
Post-operative pain, Leukopenia
Instructions: Femoropopliteal Bypass Surgery (DC)
Prescriptions:
No Action
modafinil 200 MG tablet
200 mg PO BID Qty: 60 0RF
pravastatin 40 MG tablet
40 mg PO HS
aspirin 81 MG tablet,delayed release (DR/EC)
81 mg PO HS
nitroglycerin 0.4 MG tablet, sublingual
0.4 mg sublingual [id number] PRN (Reason: chest pain)
furosemide 40 MG tablet
40 mg PO DAILY
metoprolol succinate 50 mg Tablet Extended Release 24 Hr
50 mg PO HS
albuterol sulfate 2.5 mg /3 mL (0.083 %) Solution For Nebulization
2.5 mg INHALATION R Q4 PRN (Reason: sob)
Janumet XR 100-1,000 mg Tablet, Er Multiphase 24 Hr
1 tab PO DAILY@1999
clopidogrel 75 MG tablet
75 mg PO DAILY@1999
isosorbide mononitrate 30 mg Tablet Extended Release 24 Hr
60 mg PO DAILY
gabapentin 300 mg Capsule
600 mg PO QID@08,12,16,20
budesonide-formoterol [Symbicort] 160-4.5 mcg/actuation Hfa Aerosol Inhaler
2 puff INHALATION BID
sulfamethoxazole-trimethoprim 800-160 mg Tablet
1 tab PO DAILY Qty: 0 0RF
duloxetine 30 mg Capsule,Delayed Release(Dr/Ec)
30 mg PO DAILY
lamotrigine [Lamictal ODT] 50 mg Tablet,Disintegrating
50 mg PO DAILY
amlodipine 2.5 mg tablet
2.5 mg PO DAILY Qty: 1 0RF
Referrals:
Ham Zamudio MD [Family Provider] -
Interventions
Interventions:
*General Assessment Last Done: 08/01/24 10:29
*ED COVID-19 Vaccine History Last Done: 08/01/24 10:29
ED-Male Genitourinary Assessment Last Done: 08/01/24 12:44
Discharge Date and Time
Print Language: MALTESE
[2024-08-01 13:01] LABS: Urine Albumin Negative (Neg - Trace); Urine Bilirubin Negative (Negative); Urine Character Clear (Clear); Urine Color Yellow; Urine Glucose Negative (Negative); Urine Ketone Negative (Negative); Urine Leukocyte Negative (Negative); Urine Nitrite Negative (Negative); Urine Occult Blood Negative (Negative); Urine Urobilinogen Negative (Neg - 1+)
--- NOTE | 2024-08-01 13:53 | W.PN.UPDATE ---
Update Note
Progress Note Update
Well-known to me status post femoral endarterectomy and right to left femoral to femoral artery bypass for severe peripheral arterial disease. Subsequent infection of graft. Underwent repeated serial washout with antibiotic impregnated beads.
Subsequent closure with plastics rotational flap coverage. Had presented to the office today with concern for right groin and leg pain. Based on his history he was sent to the emergency room for evaluation for possible pseudoaneurysm. Patient
notes we describes as a burning pain from the right lateral thigh/hip area down into the groin. He is comfortable now. Was given 1 shot for pain and is having no discomfort currently. Denies any fevers per se. He has had a myriad of other
symptoms since he was on Keytruda for a melanoma. Mainly GI based, some based. On exam/he is awake and alert. He is in no acute distress. Blood pressure as noted in charting, very reasonable. Afebrile. Abdomen is soft, nondistended,
nontender. Right groin is flat. No hematoma. No pulsatile mass. 2+ easily palpable femoral pulse. No erythema. No fluctuance.
CT scan images reviewed by me. I compared to prior scans including scan from 07/02/2024 as well as scan from 10/14/2023. Right femoral reconstruction and femoral to femoral artery bypass appears widely patent. No evidence of pseudoaneurysm. Just
anterior to the proximal superficial femoral artery is a chronic seroma or fluid collection. This does not appear to be rim-enhancing. No air. Nothing to suggest an infection. In addition it has been there chronically compared to the prior
scans. If anything it is slightly smaller. No new findings to suggest any arterial issue.
Plan/ No evidence of graft infection. Okay for discharge from vascular perspective. I am not clear his pain is related to the prior revascularization surgeries. Can follow closely in the outpatient setting. If recurrent pain or no improvement we
can see back sooner in the office or in the emergency room if severe. Follow-up with the radiologist read (discussed with ER team).
--- NOTE | 2024-08-01 13:57 | W.PN.UPDATE ---
Update Note
Progress Note Update
Vascular consult note from office below:
Plan/ No evidence of graft infection. Okay for discharge from vascular perspective. I am not clear his pain is related to the prior revascularization surgeries. Can follow closely in the outpatient setting. If recurrent pain or no improvement we
can see back sooner in the office or in the emergency room if severe. Follow-up with the radiologist read (discussed with ER team).
[2024-08-01 14:14] VITALS: BP 126/74
== END 2024-08-01 14:16 | disposition home or self-care (01) ==
LOC: EMR 10:28
PROVIDERS: Emergency Medicine; EMERGENCY PHYSICIAN Emergency Medicine; FAMILY PHYSICIAN Family Medicine
DX: G89.18 Other acute postprocedural pain (principal); D72.819 Decreased white blood cell count, unspecified; Z87.891 Personal history of nicotine dependence
CPT/HCPCS: 99285; 96374; 74174; 80053; 81003; 85025; Q9967

== ENCOUNTER → 2024-08-16 12:38 | Outpatient (REF) | payer MEDICARE, OTHER, SELFPAY ==
[2024-08-16 15:31] LABS: Blood Urea Nitrogen 16 mg/dl (9-20); Calcium 9.2 mg/dl (8.4-10.2); Carbon Dioxide 26 mmol/L (22-30); Chloride 96 mmol/L (98-107); Glucose 112 mg/dl (70-99); Magnesium 1.6 mg/dl (1.6-2.3); Potassium 4.4 mmol/L (3.5-5.1); Sodium 139 mmol/L (135-145); eGFR > 60.00
[2024-08-16 15:45] LABS: Hematocrit 38.5 % (39.0-52.0); Hemoglobin 12.6 g/dL (13.0-18.0); Mean Corp Hgb Conc. 32.7 g/dL (33.0-37.0); Mean Corpuscular Hgb 28.4 pg (27.0-31.0); Mean Corpuscular Volume 86.9 fL (80.0-94.0); Mean Platelet Volume 9.5 fL (7.4-10.4); Platelet Count 311 10^3/uL (130-400); Red Blood Cell Count 4.43 10^6/uL (4.70-6.10); Red Cell Dist. Width 13.5 % (11.5-14.5); White Blood Cell Count 4.3 10^3/uL (4.8-10.8)
[2024-08-16 15:51] LABS: Normal RBC Morphology Yes; Platelets Checked Yes
[2024-08-16 15:52] LABS: Absolute Neutrophils -Man Diff 1.3 10^3/uL (1.4-6.5); Band Neutrophils 3 % (0-3); Lymphocytes 45 % (20-51); Monocytes 23 % (2-9); Segmented Neutrophils 29 % (42-75); Total Cells Counted 100
== END ==
LOC: REG 12:38
PROVIDERS: ATTENDING PHYSICIAN Internal Medicine Hematology & Oncology; FAMILY PHYSICIAN Family Medicine
DX: C83.89 Other non-follicular lymphoma, extranodal and solid organ sites (principal); R22.32 Localized swelling, mass and lump, left upper limb; D50.9 Iron deficiency anemia, unspecified; C43.72 Malignant melanoma of left lower limb, including hip
CPT/HCPCS: 36415; 80048; 83735; 85025; 87045; 87046; 87324; 87427; 87449

== ENCOUNTER 2024-08-21 21:56 | Inpatient (IN) | payer MEDICARE, OTHER, SELFPAY ==
[2024-08-21] VITALS (9 sets, daily range): BP systolic 109–116; BP diastolic 40–59; BMI 30.7
[2024-08-21 17:46] LABS: Mean Corp Hgb Conc. 34.3 g/dL (33.0-37.0); Mean Corpuscular Hgb 28.8 pg (27.0-31.0); Mean Corpuscular Volume 84.1 fL (80.0-94.0); Platelet Count 276 10^3/uL (130-400); Red Blood Cell Count 4.16 10^6/uL (4.70-6.10); Red Cell Dist. Width 13.3 % (11.5-14.5); White Blood Cell Count 11.1 10^3/uL (4.8-10.8)
[2024-08-21 17:56] LABS: ALT (SGPT) 13 U/L (0-50); AST (SGOT) 25 U/L (17-59); Albumin 3.6 g/dl (3.5-5.0); Alkaline Phosphatase 111 U/L (38-126); Blood Urea Nitrogen 14 mg/dl (9-20); Calcium 8.6 mg/dl (8.4-10.2); Carbon Dioxide 25 mmol/L (22-30); Chloride 99 mmol/L (98-107); Estimated Creatinine Clearance > 125 ml/min; Glucose 166 mg/dl (70-99); Potassium 3.8 mmol/L (3.5-5.1); Sodium 136 mmol/L (135-145); Total Bilirubin 0.7 mg/dl (0.2-1.3); Total Protein 6.5 g/dl (6.3-8.2); eGFR > 60.00
--- NOTE | 2024-08-21 17:57 | EDRN ---
Pt called his daughter and left a message.
[2024-08-21 18:05] LABS: % Basophils 0.2 % (0-2); % Eosinophils 0.4 % (0-6); % Immature Granulocytes 0.7 % (0-0.5); % Lymphocytes 6.3 % (20.5-51.1); % Monocytes 6.4 % (1.7-9.3); Absolute Immature Granulocytes 0.1 10^3/uL (0-0.05); Absolute Lymphocytes 0.7 10^3/uL (1.2-3.4); Absolute Monocytes 0.7 10^3/uL (0.1-0.6); Absolute Neutrophils 9.5 10^3/uL (1.4-6.5); Nucleated Red Blood Cells % 0 % (-)
[2024-08-21 18:06] LABS: Troponin I < 0.012 ng/ml
--- NOTE | 2024-08-21 18:22 | ED.GENMED ---
History of Present Illness
General
Chief Complaint: Cardiac Symptoms
Time Seen by Provider: 08/21/24 17:32
History of Present Illness
History of Present Illness:
HPI: Earlier today, he states he Dr. Clemons's associate did a perianal incision and drainage. Shortly thereafter, he felt unwell with chills and feverish sensation. The patient came in by ambulance w due to visiting nurse ith concerns with his
mental status and shortness of breath and chest discomfort. [place] and a visiting nurse noted that he was unable to complete his sentences. Prior to arrival, he was given nitroglycerin, supplemental oxygen as a room air sat
was 92% and on 4 L/min of oxygen by EMS he was up to 96%. Extensive cardiac history. The patient states he is primarily concerned about shortness of breath. However he also reports history of melanoma and non-Hodgkin's lymphoma. He had taken
Keytruda once but this led to diarrhea. Earlier today, he reports having an episode where he knows what he wants to say but could not say it but he also reports a problem with his larynx which is chronic.
EXAM:
GENERAL: The patient appears generally weak and debilitated
HEENT: Moist oral mucosa
CARDIOVASCULAR: No murmurs, borderline tachycardic heart rate, regular rhythm, No chest wall tenderness
PULMONARY: No respiratory distress, breath sounds are slightly coarse
ABDOMEN: Soft with no peritoneal signs, minimal if any tenderness, packing noted to the perianal region with some minimal tenderness
NEUROLOGIC: Fair strength all extremities, no coordination deficits
PSYCHIATRIC: Appropriate mental status, normal insight and judgement, however he does appear slightly confused at times
EXTREMITIES: Nontender, no edema, moves all extremities equally
SKIN: Very faint lesion to the distal medial left lower extremity that he states is related to melanoma biopsy
TIME OF INITIAL ENCOUNTER: 6:30 PM
NUMBER AND COMPLEXITY OF PROBLEMS ADDRESSED AT THE ENCOUNTER
� Chronic conditions affecting care: COPD, AAA, A-fib, CHF, difficulty swallowing, diabetes, gastric bypass
� Acute Exacerbation and/or Progression of Chronic Illness: COPD, chronic bronchitis, former smoker, CPAP at night, A-fib, CAD, diabetes, B-cell lymphoma, melanoma
� Differential Diagnosis includes:
AMOUNT AND/OR COMPLEXITY OF DATA TO BE REVIEWED AND ANALYZED
� I performed an independent evaluation of and my interpretation is:
EKG: Sinus 114, right bundle branch block
CT: Brain CT unremarkable
X-rays: I questioned subtle retrocardiac infiltrate on lateral view only but radiologist did not feel that there is any evidence for pneumonia
Laboratory Studies: White count 11.1, hemoglobin 12.0, chemistries unremarkable, initial troponin less than 0.012, BNP 1200�of note BNP was also over thousand 1 month ago.
Other:
� Review of other/old records: I reviewed records, the patient was leukopenic when he was here earlier this month
� Clinical information was obtained by an independent historian: I spoke to the ER nurse who spoke to EMS
� Prescriptions/Medications Considered but not given:
� Further testing considered but not performed:
RISK OF COMPLICATIONS AND/OR MORBIDITY OR MORTALITY OF PATIENT MANAGEMENT
� Social determinants of health affecting care: The patient came in from a campground, also has a house in [place] and was planning on staying in [place] for the winter
� Discussion with other providers: I discussed case with Dr. Forrest covering for Dr. Clemons. Dr. Sunshine for admission as patient does not feel well enough to return home and he has multiple medical comorbidities.
� Escalation of care including admission/observation vs risk of discharge considered: The patient reports fevers and chills after perianal incision and drainage today and primarily is concerned of shortness of breath but also had
a period of change in mental status and still has some trouble with communicating. White count is 11.1 with left shift. Chemistries unremarkable. Initial troponin unremarkable. Will also try DuoNeb and give Tylenol and give some fluids.
Past History
Past History
ED Past Medical History: Arrthythmia (A FIB), CAD, Cancer (Melanoma, B-cell Non Hodgkins lymphoma, Prostate CA), COPD, GERD, HTN, Hypercholesterolemia, IDDM, Psychiatric (Anxiety, Depression) and Other (Neuropathy, Balance issues, Tremors, CPAP,
AAA, Iron def anemia, ADHD)
ED Past Surgical History: Cardiac (Pacemaker, Stents X 6 (two are occluded) ), Orthopedic (C2-C7 fusion, Left ankle surgery, Right total hip replacement, Right femoral bypass, ) and Other (Stent left groin, Gastric bypass, Cataracts)
Social History
Tobacco: Former smoker
Alcohol: None
Drug: None
Personal:
Living: alone
Phy Exam
Physical Exam
Physical Exam:
See HPI
Sepsis
Sepsis Screening
Sepsis Assessment: Sepsis Ruled Out
Sepsis Screen
Sepsis Screen: Sepsis Ruled Out
Date: 08/21/24
Time: 21:05
Course
Orders/Labs/Results
Orders:
Orders
08/21/24 17:25
Electrocardiogram (*1) Urgent
Reason for Study: Chest Pain
Cardiac Monitoring- Treatment ONCE
EKG- Treatment ONCE
08/21/24 17:33
Complete Blood Count/With Diff Urgent
Comprehensive Metabolic Panel Urgent
NT-proBNP Urgent
Comment: ADD ON
Troponin I Urgent
08/21/24 18:16
Add On- LAB Urgent
Comments:: tube in lab
Tests Added?: Pro-BNP
CXR2 [CR Chest - 2 Views ] Urgent
Comment:
Reason For Exam: SOB, Heavy feeling in chest, tachypnea, fever
08/21/24 18:18
Lactic Acid Urgent
08/21/24 18:19
Blood Culture Urgent
REGIS Source: Blood/Venous
Specimen Description:
08/21/24 18:35
CT Head W/o Iv Contrast Urgent
Comment:
Reason For Exam: alt ms
0.9% Sodium Chloride 500 ml [Nss] 500 ml IV BOLUS
Acetaminophen [Tylenol] 1,000 mg PO NOW STA
Ipratropium/Albuterol Sulfate [Duoneb] 3 ml INH R NOW ONE
08/21/24 19:43
Blood Culture Urgent
ERGIS Source: Blood/Venous
Specimen Description:
08/21/24 20:20
MethylPREDNISolone PF [Solu-Medrol Pf] 125 mg IV NOW STA
Abnormal Lab Results
08/21/24
17:33
WBC 11.1 H 10^3/uL
(4.8-10.8)
RBC 4.16 L 10^6/uL
(4.70-6.10)
Hgb 12.0 L g/dL
(13.0-18.0)
Hct 35.0 L %
(39.0-52.0)
Abs Immat Gran (auto) 0.1 H 10^3/uL
(0-0.05)
Absolute Neuts (auto) 9.5 H 10^3/uL
(1.4-6.5)
Absolute Lymphs (auto) 0.7 L 10^3/uL
(1.2-3.4)
Absolute Monos (auto) 0.7 H 10^3/uL
(0.1-0.6)
Immature Gran % 0.7 H %
(0-0.5)
Neutrophils % 86.0 H %
(42.2-75.2)
Lymphocytes % 6.3 L %
(20.5-51.1)
Creatinine 0.6 L mg/dL
(0.7-1.3)
Glucose 166 H mg/dl
(70-99)
08/21/24 17:33
08/21/24 17:33
Vital Signs
Initial and Last Documented VS:
Initial Vital Signs
BP
109/43
08/21/24 17:26
Last Documented Vital Signs
Temp Pulse Resp BP Pulse Ox
98.2 F 87 20 109/46 94
08/21/24 19:05 08/21/24 20:30 08/21/24 20:30 08/21/24 20:00 08/21/24 20:30
*Critical Care Note
Total Time (30-74mins, 75-104mins- exclusive of procedures): Not Applicable
ED Attending Note
-
Portions of this chart may have been created with voice recognition software.� Occasional wrong word or��sound alike� substitutions may have occurred due to the inherent limitations of voice recognition software.
Discharge Plan
Departure
Patient Disposition: Admit
Date of Disposition: 08/21/24
Time of Disposition: 20:26
Presentation/result/management discussed w/ accepting MD/DO: Hospitalist
Discharge Problem:
COPD exacerbation
Prescriptions:
No Action
pravastatin 40 MG tablet
40 mg PO DAILY
aspirin 81 MG tablet,delayed release (DR/EC)
81 mg PO HS
nitroglycerin 0.4 MG tablet, sublingual
0.4 mg sublingual [id number] PRN (Reason: chest pain)
furosemide 40 MG tablet
40 mg PO DAILY
metoprolol succinate 50 mg Tablet Extended Release 24 Hr
50 mg PO HS
Janumet XR 100-1,000 mg Tablet, Er Multiphase 24 Hr
1 tab PO DAILY
clopidogrel 75 MG tablet
75 mg PO DAILY
gabapentin 600 mg Tablet
600 mg PO TID
Theragen Tablet
1 tab PO DAILY
isosorbide mononitrate 120 mg Tablet Extended Release 24 Hr
120 mg PO HS
amoxicillin-pot clavulanate [Augmentin] 875-125 mg Tablet
1 tab PO BID
Patient Comments:
08/21/24: filled 08/21/24, to take for 10 days
cyanocobalamin (vitamin B-12) 500 mcg Tablet,Chewable
500 mcg PO DAILY
duloxetine 40 mg Capsule,Delayed Release(Dr/Ec)
40 mg PO DAILY
amlodipine 2.5 mg tablet
2.5 mg PO HS
Referrals:
UNKNOWN - PT DOES,NOT KNOW [Family Provider] -
Interventions
Interventions:
*Risk Screen - Suicide Last Done: 08/21/24 17:40
*General Assessment Last Done: 08/21/24 17:40
*Neglect/Abuse Screening Last Done: 08/21/24 17:40
ED- Fall Risk Assessment Last Done: 08/21/24 17:40
*ED COVID-19 Vaccine History Last Done: 08/21/24 17:40
ED- Pulmonary Assessment Last Done: 08/21/24 20:21
ED- Cardiac Assessment Last Done: 08/21/24 17:50
Discharge Date and Time
Print Language: STATELESS
--- NOTE | 2024-08-21 18:28 | EDRN ---
Dr. Palacios in w/pt at this time.
[2024-08-21 18:39] LABS: NT-proBNP 1200 pg/ml
[2024-08-21 18:40] LABS: Lactic Acid 1.1 mmol/L (0.7-2.0)
[2024-08-21] MEDS: TYLENOL 1000 MG PO (19:32)
[2024-08-21] MEDS: DUONEB 3 ML INH (19:33)
[2024-08-21] MEDS: NSS 500 IV (19:33)
[2024-08-21] MEDS: SOLU-MEDROL PF 125 MG IV (20:25)
--- NOTE | 2024-08-21 20:36 | HPS.HSE ---
Family Physician
-
Family Physician: NOT KNOW UNKNOWN - PT DOES
Chief Complaint
-
Fever, chills, chest pain, shortness of breath, perianal pain status post I&D
History of Present Illness
74-year-old male status post perianal incision and drainage today by Dr. Forrset. The patient was at home was seen by visiting nurse when he reported feeling unwell with chills and a feverish sensation. He also complained of shortness of breath and
chest discomfort. He was given nitroglycerin by EMS along with supplemental oxygen due to sat 92% with improvement to 96% on 4 L nasal cannula. When he describes his chest pain he states it was discomfort along with shortness of breath, although
he is tender to touch in his upper chest area. He also reports an episode of earlier today having difficulty expressing what he wanted to say which did self correct. He reports having a dry mouth has difficulty speaking when he is a dry mouth due
to a reported laryngeal mass for which he has an outpatient ENT appointment for. He has past medical history of CAD/cardiac stents x 6 with 2 occluded, Pacemaker, A-fib, B cell non-Hodgkin's lymphoma Dx 2012 on current immunotherapy, melanoma left
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
ambulatory dysfunction,Left groin pseudoaneurysm 2006 stent left groin at [facility], tremors, CPAP noncompliant,, AAA, iron deficiency anemia, ADHD, PAD with history of right femoral bypass, stent left groin.
Medical History
Past Medical History
Past Medical History: Reports Other
Additional Past Medical History:
CAD/cardiac stents x 6 with 2 occluded
Pacemaker
CHF Hx
[id number]
B cell non-Hodgkin's lymphoma Dx 2013 is on immunotherapy
Melanoma left lower ankle inner aspect
Prostate cancer
COPD/former smoker
CPAP-noncompliant
Larynx mass per patient
HTN
HLD
DM2
GERD/gastric bypass
Anxiety/ Depression
DJD neck causing chronic daily headaches
neuropathy bilateral legs
chronic ambulatory dysfunction
Tremors
AAA
iron deficiency anemia
ADHD
PAD with history of right femoral bypass
Left groin pseudoaneurysm 2007 stent left groin at [facility]
Past Surgical History: Reports Other
Additional Past Surgical History:
Pacemaker
Cardiac stents x 6
C2-C7 fusion
Left ankle surgery
Right total hip replacement
Right femoral bypass
Stent left groin
Gastric bypass
Cataract extraction
Social History
Tobacco: Former Smoker (1-1.5 pack/day for 30 years quit 1990)
Alcohol: Other (Stop drinking any alcohol 9 years ago)
Drug: None
Personal: Single
Living: Alone
Employment: Retired (fork truck driver)
Family History
Family History: Not pertinent
Allergies / Home Medications
Allergies reflects when Allergies were last updated in [facility].
Home Medications with original date entered in [facility]
Allergy/Medication List:
Allergies
Allergy/AdvReac Type Severity Reaction Status Date / Time
cefaclor [From Ceclor] Allergy Anaphylaxis, Verified 08/21/24 19:06
rash
vancomycin Allergy progression Verified 08/21/24 19:06
of chronic
neutropenia
verapamil Allergy not aware Verified 08/21/24 19:06
of this
allergy
Home Medications
aspirin 81 mg tablet,delayed release 81 mg PO HS Blood clot prevention/tx 05/18/22
furosemide 40 mg tablet 40 mg PO DAILY Fluid retention/Swelling 05/18/22
nitroglycerin 0.4 mg sublingual tablet 0.4 mg sublingual [id number] PRN chest pain 05/18/22
pravastatin 40 mg tablet 40 mg PO DAILY High cholesterol 05/18/22
metoprolol succinate 50 mg tablet,extended release 24 hr 50 mg PO HS Blood Pressure 05/24/23
clopidogrel 75 mg tablet 75 mg PO DAILY Blood clot prevention/tx 06/14/23
sitagliptin phos 100 mg-metformin ER 1,000 mg tablet,extend rel 24h mp (Janumet XR) 1 tab PO DAILY Diabetes 06/14/23
amlodipine 2.5 mg tablet 2.5 mg PO HS 08/21/24
amoxicillin 875 mg-potassium clavulanate 125 mg tablet 1 tab PO BID 08/21/24
cyanocobalamin (vitamin B-12) 500 mcg chewable tablet 500 mcg PO DAILY 08/21/24
duloxetine 40 mg capsule,delayed release 40 mg PO DAILY 08/21/24
gabapentin 600 mg tablet 600 mg PO TID 08/21/24
isosorbide mononitrate 120 mg tablet,extended release 24 hr 120 mg PO HS 08/21/24
therapeutic multivitamin 1 tab PO DAILY 08/21/24
Review of Systems
-
History Source: Patient
A 12 point ROS was completed and negative except as noted: Yes
Constitutional: Reports Fever and Chills; Denies Fatigue
EENT: Reports Other (Dry mouth); Denies Sore Throat or Runny Nose
Respiratory: Reports Trouble Breathing (Reports had hard time taking a breath earlier); Denies Cough
Cardiac: Reports Chest Pain (Point tenderness on upper anterior chest); Denies Diaphoresis, Palpitations or Syncope
Abdomen/GI: Denies Abdominal Pain, Nausea, Vomiting, Diarrhea, Constipated, Bloody Stools or Black Stools
: Reports Other (Packing in perianal area); Denies Dysuria, Frequency, Flank Pain, Incontinence, Difficulty Voiding or Urgency
Musculoskeletal: Denies Joint Pain or Edema
Skin: Denies Itching or Rash
Neurological: Reports Headache (Chronic from DJD neck); Denies Dizzy
Endocrine: Reports No Symptoms
Hematologic/Lymphatic: Reports No Symptoms
Psych: Reports Calm
Physical Exam
Vital Signs
Vital Signs
Temp Pulse Resp BP Pulse Ox
98.2 F 87 20 109/46 94
08/21/24 19:05 08/21/24 20:30 08/21/24 20:30 08/21/24 20:00 08/21/24 20:30
Physical Exam
General: Comfortable, Conversant, Fever and Chills; No Pain
HEENT: NormoCephalic, Anicteric, PERRLA, [place] Conjunctivae, No Ptosis, Oxygen (2 L nasal cannula) and Other (Voice clear)
Respiratory: Clear; No Wheezes, Rales or Rhonchi
Cardiac: S1/S2 and Regular Rhythm; No Murmur, Rub, Gallop or Peripheral Edema
Breast: Deferred by me
GI: Soft, Non Tender, Non Distended, Normal Bowel Sounds and No Hepatosplenomegaly
Rectal: Deferred by Provider
Genito-urinary: Other (Packing in perianal area per ER records)
Musculoskeletal: No Clubbing, No Cyanosis and No Edema
Skin: Warm and Dry; No Rash
Neuro: AO x 3, No Motor Deficits, Cranial Nerves Intact and No Sensory Deficits; No Slurred Speech, Facial Droop or Tremors
Psych: Calm
Laboratory Results
-
08/21/24 17:33
08/21/24 17:33
Laboratory Results
Lactic Acid 1.1 mmol/L (0.7-2.0) 08/21/24 18:18
Total Bilirubin 0.7 mg/dl (0.2-1.3) 08/21/24 17:33
AST 25 U/L (17-59) 08/21/24 17:33
ALT 13 U/L (0-50) 08/21/24 17:33
Alkaline Phosphatase 111 U/L (38-126) 08/21/24 17:33
Troponin I < 0.012 ng/ml 08/21/24 17:33
Data Reviewed
-
Diagnostic Radiology: Report Reviewed by me
CT Scan: Report Reviewed by me
Lab Data: Labs Reviewed by me
Impression/Plan
-
Impression/plan:
Admit to telemetry
#Status post perianal incision and drainage today 08/20/2024 with fever concern for SIRS/sepsis
WBC 11.1 with left shift 4.3 on 08/16/2024
Patient got prescription for Augmentin took 1 tablet today post I&D
100.3 F, HR 87, 109/46
-Consult colorectal
-Packing is in place and colorectal area
-IV Levaquin, IV Flagyl
-Blood cultures x2
-IV NSS 80
follow cbc, bmp
#Chest pain musculoskeletal
#CAD/cardiac stents x 6 with 2 occluded
#Hx RBBB
Patient tender to touch upper chest
Was given nitroglycerin by EMS
Troponin<0.012, will trend
Hold metoprolol, Imdur due to mild hypotension
-Check lipid profile
-Continue pravastatin 40 mg daily
-Continue aspirin 81 mg daily, Plavix 75 mg daily
2D echo 06/29/2023: EF 50%. Mild LVH, mild aortic stenosis, mild TR, pulm arterial pressure 35-40 mmHg
#COPD�no acute exacerbation
#Chronic granulomatous disease infection.
#former smoker
-1 to 1.5 pack/day x 30 years quit 1990
CXR:
1. No evidence of pneumonia, pleural effusion no acute pulmonary edema
2. Severe calcific atherosclerotic plaque in the coronary arteries and thoracic aorta.
3. Chronic granulomatous disease infection.
4. Left-sided cardiac pacemaker in place.
5. Severe DISH in the thoracic spine.
#Expressive aphasia 2/2 SIRS response/sepsis
Earlier today had episode of aphasia now self corrected
#Old chronic lacunar infarct right thalamus per CT
-Speech currently clear
CT head:
1. No CT evidence for acute intracranial hemorrhage or transcortical infarct.
2. SEVERE WHITE MATTER LEUKOARAIOSIS in the frontal and parietal lobes.
3. 4.6 mm chronic lacunar infarct in the right thalamus.
4. Mild diffuse cerebral and cerebellar volume loss.
# Hypotension 2/2 SIRS/HTN�benign
BP 109/46
-Hold amlodipine 2.5 mg at bedtime, Lasix 40 mg daily, Imdur 120 mg at bedtime, metoprolol succinate 50 mg at bedtime
#B cell non-Hodgkin's lymphoma Dx 2012
-Patient due to start immunotherapy next week was following with [facility] but now switching over to [facility]
History of diarrhea with Keytruda recently stopped about 9 weeks ago is to restart with [facility] unsure what type of immunotherapy
#Melanoma left lower leg inner aspect of ankle plaque Dx 2018
Was using immunotherapy
#Larynx mass per patient causing chronic sore throat/dysphagia
Patient reports has outpatient follow-up with ENT
#Chronic CHF-unclear type
I/O, daily weights
Hold furosemide due to mild hypotension
#Pacemaker
#A-fib�paroxysmal
Patient on Plavix and aspirin
Patient reports not on blood thinners as he has refused them in the past
#HLD
-Check lipid profile
-Continue pravastatin 40 mg daily
#DM2
Accu-Cheks with SSI, check HgbA1c
-Hold Janumet XR 1 tab daily
#Neuropathy feet/chronic headaches secondary to DJD neck
-Continue gabapentin 600 mg p.o. 3 times daily
#GERD/gastric bypass
-No PPI listed
-Continue vitamin B12
#Anxiety/ Depression
-Continue duloxetine 40 mg daily
#Sleep apnea/CPAP
-Does not use CPAP or his BiPAP due to it causing a sore throat
#Chronic ambulatory dysfunction
Uses cane at baseline
Other PMH:
PAD with history of right femoral bypass-continue aspirin
Left groin pseudoaneurysm 2007 stent left groin at [facility]
Chronic tremors
AAA
Iron deficiency anemia� Hgb 12, MCV 84.1
ADHD
Melanoma
Prostate cancer
DVT prophylaxis
Subcu Lovenox
Full code
--- NOTE | 2024-08-21 21:48 | W.PN.UPDATE ---
Update Note
Progress Note Update
This is an addendum to the H&P written by Leydi Lucas on 08/17/2024. Patient seen and examined independently with [facility].
74-year-old male past medical history of atrial fibrillation on anticoagulation, CAD status post stents, chronic CHF, melanoma, B cell non-Hodgkin's lymphoma, prostate cancer, COPD, hypertension, GERD, hypercholesteremia, diabetes,
anxiety/depression, presenting after I&D for perianal abscess for sepsis. Patient was also having chest pain. He was short of breath earlier with some difficulty expressing words likely due to sepsis.
Check blood cultures. Gentle IV fluids. Levaquin and Flagyl. Colorectal surgery consulted. Hold antihypertensive medications.
Chest pain appears to be musculoskeletal as chest is tender to palpation. EKG shows right bundle branch block which is old.
Dysarthria is likely secondary to sepsis/hypotension. CT head shows no evidence of acute intracranial hemorrhage. There is evidence of old infarcts. Would not pursue CVA workup.
[2024-08-21] MEDS: NSS 1000 IV (22:38)
[2024-08-21] MEDS: LEVAQUIN 100 IV (22:39)
[2024-08-21] MEDS: NEURONTIN 600 MG PO (23:52)
[2024-08-21] MEDS: FLAGYL 500 MG 100 IV (23:52)
[2024-08-21] MEDS: ASPIR LOW (ENTERIC COATED) 81 MG PO (23:52)
[2024-08-22] VITALS (7 sets, daily range): BP systolic 118–130; BP diastolic 60–65; PULSE 81; O2SAT 95; BMI 30.7
[2024-08-22 00:21] LABS: Troponin I 0.025 ng/ml
[2024-08-22 07:30] LABS: Hematocrit 35.2 % (39.0-52.0); Hemoglobin 11.7 g/dL (13.0-18.0); Mean Corp Hgb Conc. 33.2 g/dL (33.0-37.0); Mean Corpuscular Hgb 28.3 pg (27.0-31.0); Mean Platelet Volume 9.3 fL (7.4-10.4); Platelet Count 282 10^3/uL (130-400); Red Blood Cell Count 4.14 10^6/uL (4.70-6.10); Red Cell Dist. Width 13.5 % (11.5-14.5); White Blood Cell Count 10.1 10^3/uL (4.8-10.8)
[2024-08-22 07:56] LABS: ALT (SGPT) 14 U/L (0-50); AST (SGOT) 19 U/L (17-59); Albumin 3.5 g/dl (3.5-5.0); Alkaline Phosphatase 102 U/L (38-126); Blood Urea Nitrogen 13 mg/dl (9-20); Calcium 8.9 mg/dl (8.4-10.2); Carbon Dioxide 28 mmol/L (22-30); Chloride 102 mmol/L (98-107); Estimated Creatinine Clearance > 125 ml/min; Glucose 244 mg/dl (70-99); HDL Cholesterol 33 mg/dl; LDL Cholesterol, Calculated 60 mg/dl; Sodium 143 mmol/L (135-145); Total Bilirubin 0.4 mg/dl (0.2-1.3); Total Cholesterol 104 mg/dl (50-199); Total Protein 6.5 g/dl (6.3-8.2); Triglyceride 55 mg/dl (10-149); Very Low Density Lipoprotein 11 mg/dl (0-30); eGFR > 60.00
[2024-08-22 07:59] LABS: Absolute Neutrophils -Man Diff 8.5 10^3/uL (1.4-6.5); Band Neutrophils 15 % (0-3); Lymphocytes 14 % (20-51); Monocytes 1 % (2-9); Segmented Neutrophils 70 % (42-75)
[2024-08-22 08:00] LABS: Normal RBC Morphology Yes; Platelets Checked Yes; Total Cells Counted 100
[2024-08-22 08:23] LABS: Glucose - Point of Care 263 mg/dl (70-99)
[2024-08-22 08:25] LABS: Glycohemoglobin (HgbA1c) 6.7 % (4.0-5.6)
[2024-08-22] MEDS: CYMBALTA DELAYED RELEASE 40 MG PO (09:00)
[2024-08-22] MEDS: FLAGYL 500 MG 100 IV ×3 (09:00→23:12)
[2024-08-22] MEDS: NEURONTIN 600 MG PO ×3 (09:00→21:01)
[2024-08-22] MEDS: VITAMIN B-12 500 MCG PO (09:00)
[2024-08-22] MEDS: THERAGRAN 1 TABLET PO (09:01)
[2024-08-22] MEDS: PRAVACHOL 40 MG PO (09:02)
[2024-08-22] MEDS: PLAVIX 75 MG PO (09:02)
[2024-08-22] MEDS: NOVOLOG FLEXPEN-LOW RESISTANCE 3 UNITS SC (09:11)
--- NOTE | 2024-08-22 11:23 | VNURNOTE ---
Chart reviewed. Patient is current with [facility] nursing. Will continue to follow hospital course and DC plans.
[2024-08-22 11:41] LABS: Glucose - Point of Care 154 mg/dl (70-99)
[2024-08-22] MEDS: NOVOLOG FLEXPEN-LOW RESISTANCE 1 UNITS SC (12:33)
[2024-08-22 13:09] LABS: Glucose - Point of Care 193 mg/dl (70-99)
--- NOTE | 2024-08-22 14:39 | WOUNDNOTE ---
WO RN note: Patient admitted with SOB, s/p I&D of perianal abscess on
See H&P for complete history.
PMH: CAD status post stents, chronic CHF, melanoma, B cell non-Hodgkin's lymphoma, prostate cancer, COPD, hypertension, GERD, hypercholesteremia, diabetes, anxiety/depression, presenting after I&D for perianal abscess for sepsis.
Wound Location and type/assessment: Patient admitted with surgical incision from I & D abscess on 08/21. The old packing was removed with a moderate amount of sanguinous drainage. No odor noted, slight tenderness with palpation. Periwound is soft.
Depth of wound approx 2 cm. Sacrum and heels intact.
Pressure redistribution devices in place: Patient was sitting in chair with air cushion and can turn in bed easily and ambulate.
Plan: Incision cleaned and packed with 1/4 inch packing strip. TT Hospitalist who will consult colorectal surgery, as noted in 08/21 note. Instructed patient to limit time and change and change position frequently to minimize pressure on incision.
Will confirm orders with hospitalist and update nurse.
Updated care plan and will follow as needed.
[2024-08-22 16:52] LABS: Glucose - Point of Care 148 mg/dl (70-99)
[2024-08-22] MEDS: NOVOLOG FLEXPEN-LOW RESISTANCE SC (16:55)
--- NOTE | 2024-08-22 17:06 | W.PN.HOSP.TC ---
Today's Communication/Plan
-
IV antibiotics pending cultures
Colorectal surgery evaluation
Hold oral glucose lowering medications while on basal bolus protocol
Wean off IV fluids
Reintroduce cardiovascular regimen while holding Lasix.
Assessment / Plan
Assessment / Plan
Impression:
Perianal abscess with concern for sepsis/bacteremia.
Other conditions:
PAD status post right lower extremity bypass.
CAD.
Paroxysmal atrial fibrillation not on anticoagulation
Status post pacemaker
Type 2 diabetes.
PUD.
Dyslipidemia
Sleep apnea.
Remote history of DVT
Follicular lymphoma
Removed melanoma
Status post gastric bypass surgery
Plan:
Perianal abscess.
Patient presents shortly after outpatient I&D by colorectal surgery with complaints of chills and rigors
Given above concern for evolving sepsis possibly bacteremia
Afebrile and hemodynamically stable since admission.
Blood cultures pending.
Colorectal surgery consultation pending. Patient may require additional imaging for deeper collection if remains symptomatic.
Initiated on broad-spectrum antibiotics: IV Levaquin/IV Flagyl.
Currently nontoxic-appearing and hemodynamically stable. Wean off IV fluids
Cardiovascular
Reported chest pain on admission was reproducible
EKG with no ischemia.
Negative cardiac markers
Doubt acute coronary syndrome.
Currently chest pain-free.
CAD with history of cardiac stent.
Continue preadmission regimen including metoprolol, Imdur, Norvasc
Patient is on DAPT with prior history of PAD/femoral bypass.
History of chronic CHF preserved EF
Echocardiogram 07/20 EF 50%, mild LVH, mild aortic stenosis, mild TR, pulmonary arterial pressure 35�40.
Currently hemodynamically stable.
Wean off IV fluids.
Monitor volume status closely with reintroducing furosemide over the next 24 to 48 hours.
Paroxysmal A-fib.
Not on anticoagulation
Based
Type 2 diabetes.
Hemoglobin A1c 6.7.
Currently n.p.o. with planned surgical intervention
Hold Janumet
Continue basal bolus protocol.
Anticipated Discharge: 24 - 48 hours
Subjective/Interval History
-
Date of Service: August 22, 2024
Objective Data
-
Labs:
Laboratory Results
08/22/24
06:51
WBC 10.1
Hgb 11.7 L
Hct 35.2 L
Plt Count 282
Sodium 143
Potassium 4.0
Chloride 102
Carbon Dioxide 28
BUN 13
Creatinine 0.6 L
Glucose 244 H
Calcium 8.9
Total Bilirubin 0.4
AST 19
ALT 14
Alkaline Phosphatase 102
Vital Signs:
Vital Signs
Temp Pulse Resp BP Pulse Ox
97.8 F 78 18 121/62 93
08/22/24 15:51 08/22/24 15:51 08/22/24 15:51 08/22/24 15:51 08/22/24 15:51
I&O
08/21/24 08/22/24 08/23/24
06:59 06:59 06:59
Output Total 1000 / 1000
Balance -1000 / -1000
Physical Exam
-
General: Well Developed and No Apparent Distress
HEENT: Normocephalic, Atraumatic and Moist Mucous Membranes
Respiratory: Clear to Auscultation
Cardiac: Regular Rhythm and S1/S2; Negative Murmur, Rub or Gallop
GI: Soft, Nontender, Nondistended and Normal Bowel Sounds; Negative Organomegaly
Rectal: Deferred by Provider
Musculoskeletal: No Clubbing, No Cyanosis and No Edema
Skin: Negative Rash
Neuro: Nonfocal/Grossly Intact
[2024-08-22] MEDS: LOVENOX 40 MG SC (17:27)
[2024-08-22] MEDS: ASPIR LOW (ENTERIC COATED) 81 MG PO (21:01)
[2024-08-22] MEDS: TOPROL XL 50 MG PO (21:01)
[2024-08-22] MEDS: NORVASC 2.5 MG PO (21:02)
[2024-08-22] MEDS: LEVAQUIN 100 IV (21:02)
[2024-08-22] MEDS: IMDUR (EXTENDED RELEASE) 120 MG PO (21:02)
[2024-08-22 21:12] LABS: Glucose - Point of Care 128 mg/dl (70-99)
[2024-08-23 03:24] VITALS: BP 115/54
[2024-08-23 06:15] VITALS: BMI 30.2
[2024-08-23 07:32] VITALS: BP 119/56
[2024-08-23 08:13] LABS: Glucose - Point of Care 125 mg/dl (70-99)
[2024-08-23 08:15] LABS: % Basophils 0.2 % (0-2); % Eosinophils 3.2 % (0-6); % Immature Granulocytes 0.5 % (0-0.5); % Lymphocytes 30.8 % (20.5-51.1); % Monocytes 11.1 % (1.7-9.3); % Neutrophils 54.2 % (42.2-75.2); Absolute Eosinophils 0.2 10^3/uL (0-0.7); Absolute Monocytes 0.7 10^3/uL (0.1-0.6); Absolute Neutrophils 3.4 10^3/uL (1.4-6.5); Hematocrit 28.3 % (39.0-52.0); Hemoglobin 9.5 g/dL (13.0-18.0); Mean Corp Hgb Conc. 33.6 g/dL (33.0-37.0); Mean Corpuscular Volume 86.3 fL (80.0-94.0); Mean Platelet Volume 9.6 fL (7.4-10.4); Nucleated Red Blood Cells % 0 % (-); Platelet Count 242 10^3/uL (130-400); Red Blood Cell Count 3.28 10^6/uL (4.70-6.10); Red Cell Dist. Width 13.5 % (11.5-14.5); White Blood Cell Count 6.3 10^3/uL (4.8-10.8)
[2024-08-23] MEDS: NOVOLOG FLEXPEN-LOW RESISTANCE SC ×3 (08:39→16:50)
[2024-08-23] MEDS: CYMBALTA DELAYED RELEASE 40 MG PO (08:40)
[2024-08-23] MEDS: PRAVACHOL 40 MG PO (08:40)
[2024-08-23] MEDS: VITAMIN B-12 500 MCG PO (08:40)
[2024-08-23] MEDS: THERAGRAN 1 TABLET PO (08:40)
[2024-08-23] MEDS: NEURONTIN 600 MG PO ×3 (08:40→21:33)
[2024-08-23] MEDS: PLAVIX 75 MG PO (08:40)
[2024-08-23] MEDS: FLAGYL 500 MG 100 IV ×3 (08:40→23:00)
[2024-08-23 09:10] LABS: ALT (SGPT) 18 U/L (0-50); AST (SGOT) 31 U/L (17-59); Albumin 2.8 g/dl (3.5-5.0); Alkaline Phosphatase 77 U/L (38-126); Blood Urea Nitrogen 17 mg/dl (9-20); Calcium 8.4 mg/dl (8.4-10.2); Carbon Dioxide 29 mmol/L (22-30); Chloride 104 mmol/L (98-107); Estimated Creatinine Clearance 109 ml/min; Glucose 109 mg/dl (70-99); Potassium 3.9 mmol/L (3.5-5.1); Sodium 142 mmol/L (135-145); Total Bilirubin 0.2 mg/dl (0.2-1.3); Total Protein 5.4 g/dl (6.3-8.2); eGFR > 60.00
--- NOTE | 2024-08-23 10:30 | CON.CRS ---
Consultation
-
Date/Time Consultation Requested: 08/22/2024, 17:02
Date/Time Consultation Performed: 08/23/2024, 08:45
Requesting Provider: Sadi Blanca MD
Performing Provider: Clement Forrest MD
Reason for Consultation: perianal abscess
Medical History
-
Chief Complaint: fevers/chills, SOB
History of Present Illness:
74-year-old male with a past medical history of diabetes, melanoma on Keytruda, and multiple other medical issues presents to the ER 1 day after drainage of a perianal abscess. This was performed by Dr. Forrest as an outpatient in the office. The
patient had tolerated the procedure well and was started on an outpatient antibiotic. The patient came to [place] ER the following day due to chills, fever-like feeling, shortness of breath and chest discomfort. He was given nitroglycerin by
EMS and oxygen. He was started on Levaquin and Flagyl. Blood cultures were drawn. Cardiovascular workup was negative. We have been consulted for further surgical opinion.
Past Medical History
Past Medical History: Arrhythmias (afib), CAD (CAD/cardiac stents x 6 with 2 occluded), Cancer (B cell non-Hodgkin's lymphoma Dx 2013 is on immunotherapy, Melanoma left lower ankle inner aspect, Prostate cancer, Larynx mass per patient), CHF, COPD,
HTN, Hypercholesterolemia, IDDM, Psychiatric (Anxiety/ Depression) and Other (GERD, DJD neck, neuropathy bilateral legs, Tremors, AAA, iron deficiency anemia, ADHD, PAD with history of right femoral bypass)
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
Stent left groin, Gastric bypass, Cataract extraction)
Social History
Tobacco: Former Smoker
Alcohol: None
Drug: None
Employment: Employed
Family History
Family History: Reviewed & Not Pertinent
Allergies / Home Medications
Allergy/AdvReac Type Severity Reaction Status Date / Time
[facility]faclor [[facility] Allergy Anaphylaxis, Verified 08/21/24 19:06
rash
vancomycin Allergy progression Verified 08/21/24 19:06
of chronic
neutropenia
verapamil Allergy not aware Verified 08/21/24 19:06
of this
allergy
�Medication �Instructions �Recorded �Confirmed �Type
aspirin 81 mg tablet,delayed 81 mg PO HS Blood clot 05/18/22 08/21/24 History
release prevention/tx
furosemide 40 mg tablet 40 mg PO DAILY Fluid 05/18/22 08/21/24 History
retention/Swelling
nitroglycerin 0.4 mg sublingual 0.4 mg sublingual [id number] PRN 05/18/22 08/21/24 History
tablet chest pain
pravastatin 40 mg tablet 40 mg PO DAILY High cholesterol 05/18/22 08/21/24 History
metoprolol succinate 50 mg 50 mg PO HS Blood Pressure 05/24/23 08/21/24 History
tablet,extended release 24 hr
clopidogrel 75 mg tablet 75 mg PO DAILY Blood clot 06/14/23 08/21/24 History
prevention/tx
sitagliptin phos 100 mg-metformin 1 tab PO DAILY Diabetes 06/14/23 08/21/24 History
ER 1,000 mg tablet,extend rel 24h
mp (Janumet XR)
amlodipine 2.5 mg tablet 2.5 mg PO HS 08/21/24 08/21/24 History
amoxicillin 875 mg-potassium 1 tab PO BID 08/21/24 08/21/24 History
clavulanate 125 mg tablet
cyanocobalamin (vitamin B-12) 500 500 mcg PO DAILY 08/21/24 08/21/24 History
mcg chewable tablet
duloxetine 40 mg capsule,delayed 40 mg PO DAILY 08/21/24 08/21/24 History
release
gabapentin 600 mg tablet 600 mg PO TID 08/21/24 08/21/24 History
isosorbide mononitrate 120 mg 120 mg PO HS 08/21/24 08/21/24 History
tablet,extended release 24 hr
therapeutic multivitamin 1 tab PO DAILY 08/21/24 08/21/24 History
Review of Systems
-
History Source: Patient
Constitutional: Fever and Chills
Respiratory: Trouble Breathing
Abdomen/GI: Pain (rectal pain)
A 10 point review of systems was completed, and was negative except as per HPI.
Physical Exam
Vital Signs
Temp 97.7 F 08/23/24 07:32
Pulse 71 08/23/24 07:32
Resp Rate 22 08/23/24 07:32
Blood pressure 119/56 08/23/24 07:32
SaO2 97 08/23/24 07:32
08/22/24 08/23/24 08/24/24
06:59 06:59 06:59
Actual Weight 101.4 kg 99.507 kg
Body Mass Index (BMI) 30.2
Lab Results / Allergies
08/23/24 06:39
08/23/24 06:39
WBC 6.3 10^3/uL (4.8-10.8) 08/23/24 06:39
Hgb 9.5 g/dL (13.0-18.0) L 08/23/24 06:39
Hct 28.3 % (39.0-52.0) L 08/23/24 06:39
Plt Count 242 10^3/uL (130-400) 08/23/24 06:39
Abs Immat Gran (auto) 0.0 10^3/uL (0-0.05) 08/23/24 06:39
Neutrophils % 54.2 % (42.2-75.2) 08/23/24 06:39
Allergy/AdvReac Type Severity Reaction Status Date / Time
cefaclor [From Ceclor] Allergy Anaphylaxis, Verified 08/21/24 19:06
rash
vancomycin Allergy progression Verified 08/21/24 19:06
of chronic
neutropenia
verapamil Allergy not aware Verified 08/21/24 19:06
of this
allergy
Physical Exam
General: Well Developed, Well Nourished and No Apparent Distress
GI: Soft, Non Tender and Non Distended
Rectal: Other (perianal abscess incision site noted, no pus upon palpation, no erythema, negative HOA)
Neuro: AO x 3
Data Reviewed
-
Labs: Labs Reviewed by me, Discussed with Physician and Discussed with Patient
Old Records: Reviewed
Assessment / Plan
-
Assessment: 74 yo male s/p perianal abscess I+D 2 days ago, presents with fevers/chills, SOB
Plan:
- Continue IV antibiotics
- No role for further imaging
- No plans for further surgery
- Recommend another day of antibiotics prior to discharge
- Sitz baths twice a day
- Continue diet
-Discussed case with Dr. Moore. He may need to delay his Keytruda which is due 08/27
[2024-08-23 11:30] VITALS: BP 123/66
[2024-08-23 12:12] LABS: Glucose - Point of Care 141 mg/dl (70-99)
[2024-08-23 15:11] VITALS: BP 117/59
--- NOTE | 2024-08-23 16:20 | W.PN.HOSP.TC ---
Today's Communication/Plan
-
Continue IV antibiotics pending cultures
Continue sitz bath's
Assessment / Plan
Assessment / Plan
Impression:
Perianal abscess with concern for sepsis/bacteremia.
Other conditions:
PAD status post right lower extremity bypass.
CAD.
Paroxysmal atrial fibrillation not on anticoagulation
Status post pacemaker
Type 2 diabetes.
PUD.
Dyslipidemia
Sleep apnea.
Remote history of DVT
Follicular lymphoma
Removed melanoma
Status post gastric bypass surgery
Plan:
Perianal abscess.
Patient presents shortly after outpatient I&D by colorectal surgery with complaints of chills and rigors
Given above concern for evolving sepsis possibly bacteremia
Afebrile and hemodynamically stable since admission.
Blood cultures pending.
Colorectal surgery consultation appreciated with no indication for additional imaging or surgical intervention
Initiated on broad-spectrum antibiotics: IV Levaquin/IV Flagyl.
Currently nontoxic-appearing and hemodynamically stable. Wean off IV fluids
Cardiovascular
Reported chest pain on admission was reproducible
EKG with no ischemia.
Negative cardiac markers
Doubt acute coronary syndrome.
Currently chest pain-free.
CAD with history of cardiac stent.
Continue preadmission regimen including metoprolol, Imdur, Norvasc
Patient is on DAPT with prior history of PAD/femoral bypass.
History of chronic CHF preserved EF
Echocardiogram 07/20 EF 50%, mild LVH, mild aortic stenosis, mild TR, pulmonary arterial pressure 35�40.
Currently hemodynamically stable.
Wean off IV fluids.
Monitor volume status closely with reintroducing furosemide over the next 24 to 48 hours.
Paroxysmal A-fib.
Not on anticoagulation
Based
Type 2 diabetes.
Hemoglobin A1c 6.7.
Currently n.p.o. with planned surgical intervention
Hold Janumet
Continue basal bolus protocol.
Anticipated Discharge: 24 - 48 hours
Subjective/Interval History
-
Date of Service: August 23, 2024
Objective Data
-
Labs:
Laboratory Results
08/23/24
06:39
WBC 6.3
Hgb 9.5 L
Hct 28.3 L
Plt Count 242
Sodium 142
Potassium 3.9
Chloride 104
Carbon Dioxide 29
BUN 17
Creatinine 0.7
Glucose 109 H
Calcium 8.4
Total Bilirubin 0.2
AST 31
ALT 18
Alkaline Phosphatase 77
Vital Signs:
Vital Signs
Temp Pulse Resp BP Pulse Ox
98.2 F 72 22 117/59 95
08/23/24 15:11 08/23/24 15:11 08/23/24 15:11 08/23/24 15:11 08/23/24 15:11
I&O
08/22/24 08/23/24 08/24/24
06:59 06:59 06:59
Intake Total 1879 / 1879
Output Total 1000 / 1000 1640 / 1640
Balance -1000 / -1000 240 / 240
Physical Exam
-
General: Well Developed and No Apparent Distress
HEENT: Normocephalic, Atraumatic and Moist Mucous Membranes
Respiratory: Clear to Auscultation
Cardiac: Regular Rhythm and S1/S2; Negative Murmur, Rub or Gallop
GI: Soft, Nontender, Nondistended and Normal Bowel Sounds; Negative Organomegaly
Rectal: Deferred by Provider
Musculoskeletal: No Clubbing, No Cyanosis and No Edema
Skin: Negative Rash
Neuro: Nonfocal/Grossly Intact
[2024-08-23 16:45] LABS: Glucose - Point of Care 130 mg/dl (70-99)
[2024-08-23] MEDS: LOVENOX 40 MG SC (17:32)
[2024-08-23 19:48] VITALS: BP 129/64
[2024-08-23 21:17] LABS: Glucose - Point of Care 166 mg/dl (70-99)
[2024-08-23] MEDS: NORVASC 2.5 MG PO (21:33)
[2024-08-23] MEDS: ASPIR LOW (ENTERIC COATED) 81 MG PO (21:33)
[2024-08-23] MEDS: IMDUR (EXTENDED RELEASE) 120 MG PO (21:38)
[2024-08-23] MEDS: TOPROL XL 50 MG PO (21:39)
[2024-08-23] MEDS: LEVAQUIN 100 IV (21:39)
[2024-08-23 22:20] VITALS: BP 129/64
[2024-08-24 03:51] VITALS: BP 107/56
[2024-08-24 06:55] LABS: Glucose - Point of Care 122 mg/dl (70-99)
[2024-08-24 07:00] VITALS: BP 115/63
[2024-08-24 07:05] LABS: % Basophils 0.3 % (0-2); % Eosinophils 9.5 % (0-6); % Immature Granulocytes 0.3 % (0-0.5); % Lymphocytes 42.3 % (20.5-51.1); % Monocytes 14.2 % (1.7-9.3); % Neutrophils 33.4 % (42.2-75.2); Absolute Eosinophils 0.4 10^3/uL (0-0.7); Absolute Lymphocytes 1.6 10^3/uL (1.2-3.4); Absolute Monocytes 0.6 10^3/uL (0.1-0.6); Absolute Neutrophils 1.3 10^3/uL (1.4-6.5); Hematocrit 29.8 % (39.0-52.0); Hemoglobin 9.8 g/dL (13.0-18.0); Mean Corp Hgb Conc. 32.9 g/dL (33.0-37.0); Mean Corpuscular Hgb 27.4 pg (27.0-31.0); Mean Corpuscular Volume 83.2 fL (80.0-94.0); Mean Platelet Volume 8.9 fL (7.4-10.4); Nucleated Red Blood Cells % 0 % (-); Platelet Count 221 10^3/uL (130-400); Red Blood Cell Count 3.58 10^6/uL (4.70-6.10); Red Cell Dist. Width 13.8 % (11.5-14.5); White Blood Cell Count 3.9 10^3/uL (4.8-10.8)
--- NOTE | 2024-08-24 07:33 | PTCARENOTE ---
Pt aaox3 able to make his needs known. Pt was encouraged to do the sitz bath over night, pt refusing it & prefers to sleep.Plan of care continued.
[2024-08-24 07:35] LABS: ALT (SGPT) 20 U/L (0-50); AST (SGOT) 25 U/L (17-59); Albumin 2.9 g/dl (3.5-5.0); Alkaline Phosphatase 75 U/L (38-126); Blood Urea Nitrogen 14 mg/dl (9-20); Calcium 8.5 mg/dl (8.4-10.2); Carbon Dioxide 28 mmol/L (22-30); Chloride 105 mmol/L (98-107); Estimated Creatinine Clearance 113 ml/min; Glucose 117 mg/dl (70-99); Sodium 142 mmol/L (135-145); Total Bilirubin 0.2 mg/dl (0.2-1.3); Total Protein 5.6 g/dl (6.3-8.2); eGFR > 60.00
[2024-08-24] MEDS: NOVOLOG FLEXPEN-LOW RESISTANCE SC ×2 (09:15→12:40)
[2024-08-24] MEDS: NEURONTIN 600 MG PO ×2 (09:15→16:38)
[2024-08-24] MEDS: PLAVIX 75 MG PO (09:16)
[2024-08-24] MEDS: CYMBALTA DELAYED RELEASE 40 MG PO (09:16)
[2024-08-24] MEDS: THERAGRAN 1 TABLET PO (09:16)
[2024-08-24] MEDS: VITAMIN B-12 500 MCG PO (09:16)
[2024-08-24] MEDS: FLAGYL 500 MG 100 IV (09:18)
[2024-08-24] MEDS: PRAVACHOL 40 MG PO (09:18)
[2024-08-24 11:00] VITALS: BP 116/61
--- NOTE | 2024-08-24 11:15 | CM ---
Addendum entered by Eloina Mayer 08/24/24 15:03:
Patient for discharge today. IMM reviewed, signed, placed in chart. Patient confirms he has transportation home.
Original Note:
CM reviewed chart, met with patient. Patient resides independently in a trailer, about four steps to enter. Patient reports uses a cane or walking stick if feeling off balance, currently working with [facility] for nursing. Patient reports he is starting
PT at [facility] for outpatient therapy. Patient reports history of [facility]. Patient reports his PCP is the [facility], pharmacy preferred is [facility]. Patient confirms prescription coverage, denies insecurities at home.
Patient requesting Advance Directive, provided to patient. CM will continue to follow for all discharge planning needs.
Plan; [facility] when stable.
--- NOTE | 2024-08-24 12:12 | VNURNOTE ---
Met with patient at bedside. He is current w/[facility] and confirms he would like to resume services. He noted that he intends on starting outpt PT. He understands he might not be cleared until perianal wound heals. He understands that [facility] cannot
see him concurrently w/outpt PT. He stated he has ONC and colorectal appts on 08/27, will know more after that. Plan is to resume [facility] until cleared to start outpt PT. Pt is in agreement. Resumption referral in [facility].
[2024-08-24 12:43] LABS: Glucose - Point of Care 113 mg/dl (70-99)
--- NOTE | 2024-08-24 14:31 | W.DS.TRANS ---
DC Summary - Fitness Manager
-
Discharge Instructions:
Discharge Diagnosis/Procedures Impression:
Perianal abscess with concern for sepsis/
bacteremia.
Other conditions:
PAD status post right lower extremity bypass.
CAD.
Paroxysmal atrial fibrillation not on
anticoagulation
Status post pacemaker
Type 2 diabetes.
PUD.
Dyslipidemia
Sleep apnea.
Remote history of DVT
Follicular lymphoma
Removed melanoma
Status post gastric bypass surgery
Diet Diabetic, Carb Controlled
Instructions:
Stand-Alone Forms:
Changes to Home Medications: No
Discharge Medications:
DC Medications w/original date entered in [employer]
aspirin 81 mg tablet,delayed release 81 mg PO HS Blood clot prevention/tx 05/18/22
furosemide 40 mg tablet 40 mg PO DAILY Fluid retention/Swelling 05/18/22
nitroglycerin 0.4 mg sublingual tablet 0.4 mg sublingual [id number] PRN chest pain 05/18/22
pravastatin 40 mg tablet 40 mg PO DAILY High cholesterol 05/18/22
metoprolol succinate 50 mg tablet,extended release 24 hr 50 mg PO HS Blood Pressure 05/24/23
clopidogrel 75 mg tablet 75 mg PO DAILY Blood clot prevention/tx 06/14/23
sitagliptin phos 100 mg-metformin ER 1,000 mg tablet,extend rel 24h mp (Janumet XR) 1 tab PO DAILY Diabetes 06/14/23
amlodipine 2.5 mg tablet 2.5 mg PO HS 08/21/24
cyanocobalamin (vitamin B-12) 500 mcg chewable tablet 500 mcg PO DAILY 08/21/24
duloxetine 40 mg capsule,delayed release 40 mg PO DAILY 08/21/24
gabapentin 600 mg tablet 600 mg PO TID 08/21/24
isosorbide mononitrate 120 mg tablet,extended release 24 hr 120 mg PO HS 08/21/24
therapeutic multivitamin 1 tab PO DAILY 08/21/24
levofloxacin 500 mg tablet 500 mg PO DAILY #7 tabs 08/24/24
Home Medication Changes
Pending Results: No
[2024-08-24 15:00] VITALS: BP 117/58
== END 2024-08-24 18:10 | disposition home or self-care (01) | DRG 863 ==
LOC: 4 EAST ACU 21:56
PROVIDERS: Clinical Nurse Specialist Family Health; Student in an Organized Health Care Education/Training Program; ADMITTING PHYSICIAN Hospitalist; ATTENDING PHYSICIAN Internal Medicine; EMERGENCY PHYSICIAN Emergency Medicine; OTHER PHYSICIAN Surgery
DX: T81.44XA Sepsis following a procedure, initial encounter (principal); K61.0 Anal abscess; C85.90 Non-Hodgkin lymphoma, unspecified, unspecified site; I50.32 Chronic diastolic (congestive) heart failure; E11.51 Type 2 diabetes mellitus with diabetic peripheral angiopathy without gangrene; G57.93 Unspecified mononeuropathy of bilateral lower limbs; E11.41 Type 2 diabetes mellitus with diabetic mononeuropathy; I48.0 Paroxysmal atrial fibrillation; I11.0 Hypertensive heart disease with heart failure; Y84.8 Other medical procedures as the cause of abnormal reaction of the patient, or of later complication, without mention of misadventure at the time of the procedure
CPT/HCPCS: 70450; 71046; 80053; 80061; 82962; 83036; 83605; 83880; 84484; 85025; 87040; 87070; 93005; 94640; 96361; 96374; 97116; 97161; 99285

== ENCOUNTER → 2024-09-03 16:11 | Outpatient (REF) | payer MEDICARE, OTHER, SELFPAY ==
[2024-09-03 11:26] LABS: % Basophils 0.2 % (0-2); % Eosinophils 14.2 % (0-6); % Immature Granulocytes 0.2 % (0-0.5); % Lymphocytes 36.8 % (20.5-51.1); % Monocytes 11.8 % (1.7-9.3); % Neutrophils 36.8 % (42.2-75.2); Absolute Eosinophils 0.7 10^3/uL (0-0.7); Absolute Lymphocytes 1.7 10^3/uL (1.2-3.4); Absolute Monocytes 0.5 10^3/uL (0.1-0.6); Absolute Neutrophils 1.7 10^3/uL (1.4-6.5); Hematocrit 36.7 % (39.0-52.0); Hemoglobin 11.9 g/dL (13.0-18.0); Mean Corp Hgb Conc. 32.4 g/dL (33.0-37.0); Mean Corpuscular Hgb 27.5 pg (27.0-31.0); Mean Corpuscular Volume 84.8 fL (80.0-94.0); Mean Platelet Volume 9.2 fL (7.4-10.4); Nucleated Red Blood Cells % 0 % (-); Platelet Count 289 10^3/uL (130-400); Red Blood Cell Count 4.33 10^6/uL (4.70-6.10); Red Cell Dist. Width 14.2 % (11.5-14.5); White Blood Cell Count 4.6 10^3/uL (4.8-10.8)
[2024-09-03 11:40] LABS: ALT (SGPT) 15 U/L (0-50); AST (SGOT) 24 U/L (17-59); Albumin 2.5 g/dl (3.5-5.0); Alkaline Phosphatase 85 U/L (38-126); Blood Urea Nitrogen 9 mg/dl (9-20); Calcium 8.9 mg/dl (8.4-10.2); Carbon Dioxide 30 mmol/L (22-30); Chloride 102 mmol/L (98-107); Glucose 130 mg/dl (70-99); Potassium 4.1 mmol/L (3.5-5.1); Sodium 141 mmol/L (135-145); Total Bilirubin 0.4 mg/dl (0.2-1.3); Total Protein 6.6 g/dl (6.3-8.2); eGFR > 60.00
[2024-09-03 11:57] LABS: Free T4 1.22 ng/dl (0.78-2.19)
[2024-09-03 12:11] LABS: TSH 1.77 uIU/ml (0.47-4.68)
== END ==
LOC: OIDL 16:11
PROVIDERS: ATTENDING PHYSICIAN Internal Medicine Hematology & Oncology
DX: C83.89 Other non-follicular lymphoma, extranodal and solid organ sites (principal); R22.32 Localized swelling, mass and lump, left upper limb; D50.9 Iron deficiency anemia, unspecified; C43.72 Malignant melanoma of left lower limb, including hip; R53.82 Chronic fatigue, unspecified
CPT/HCPCS: 80053; 84439; 84443; 85025

== ENCOUNTER → 2024-10-03 08:48 | Outpatient (REF) | payer MEDICARE, OTHER, SELFPAY | LOC: RAD 08:48 | PROVIDERS: ATTENDING PHYSICIAN Internal Medicine Hematology & Oncology; FAMILY PHYSICIAN Family Medicine | DX: C83.89 Other non-follicular lymphoma, extranodal and solid organ sites (principal); R22.32 Localized swelling, mass and lump, left upper limb; D50.9 Iron deficiency anemia, unspecified; C43.72 Malignant melanoma of left lower limb, including hip | CPT/HCPCS: 70470; Q9967 ==

== ENCOUNTER → 2025-04-08 11:41 | Outpatient (REF) | payer MEDICARE, OTHER, SELFPAY ==
[2025-04-08 13:40] LABS: Hematocrit 39.1 % (39.0-52.0); Hemoglobin 13.3 g/dL (13.0-18.0); Mean Corpuscular Hgb 29.1 pg (27.0-31.0); Mean Corpuscular Volume 85.6 fL (80.0-94.0); Mean Platelet Volume 9.5 fL (7.4-10.4); Platelet Count 248 10^3/uL (130-400); Red Blood Cell Count 4.57 10^6/uL (4.70-6.10); Red Cell Dist. Width 12.9 % (11.5-14.5); White Blood Cell Count 2.8 10^3/uL (4.8-10.8)
[2025-04-08 14:27] LABS: Absolute Neutrophils -Man Diff 0.3 10^3/uL (1.4-6.5); Band Neutrophils 6 % (0-3); Lymphocytes 70 % (20-51); Monocytes 16 % (2-9); Segmented Neutrophils 8 % (42-75)
[2025-04-08 14:28] LABS: Normal RBC Morphology Yes; Platelets Checked Yes; Total Cells Counted 100
[2025-04-08 15:09] LABS: Glycohemoglobin (HgbA1c) 5.8 % (4.0-5.6)
[2025-04-08 15:12] LABS: Microalbumin, Random Urine 1.3 mg/dl (0.6-1.7); Microalbumin/creatinine Ratio 8.4 mg/g
[2025-04-08 15:12] LABS: ALT (SGPT) 11 U/L (0-50); AST (SGOT) 18 U/L (17-59); Albumin 4.7 g/dl (3.5-5.0); Alkaline Phosphatase 110 U/L (38-126); Blood Urea Nitrogen 18 mg/dl (9-20); Calcium 9.6 mg/dl (8.4-10.2); Carbon Dioxide 27 mmol/L (22-30); Chloride 108 mmol/L (98-107); Glucose 121 mg/dl (70-99); HDL Cholesterol 45 mg/dl; LDL Cholesterol, Calculated 90 mg/dl; Potassium 5.1 mmol/L (3.5-5.1); Sodium 143 mmol/L (135-145); Total Bilirubin 0.6 mg/dl (0.2-1.3); Total Cholesterol 158 mg/dl (50-199); Total Protein 7.9 g/dl (6.3-8.2); Triglyceride 115 mg/dl (10-149); Very Low Density Lipoprotein 23 mg/dl (0-30); eGFR > 60.00
[2025-04-08 15:24] LABS: LDL Cholesterol, Direct 75 mg/dl
[2025-04-08 15:28] LABS: TSH Reflex To Free T4 4.02 uIU/ml (0.47-4.68)
== END ==
LOC: REG 11:41
PROVIDERS: ATTENDING PHYSICIAN Nurse Practitioner Adult Health; FAMILY PHYSICIAN Family Medicine
DX: C83.89 Other non-follicular lymphoma, extranodal and solid organ sites (principal); R22.32 Localized swelling, mass and lump, left upper limb; D50.9 Iron deficiency anemia, unspecified; C43.72 Malignant melanoma of left lower limb, including hip; R53.82 Chronic fatigue, unspecified; I25.10 Atherosclerotic heart disease of native coronary artery without angina pectoris; I25.119 Atherosclerotic heart disease of native coronary artery with unspecified angina pectoris; E11.65 Type 2 diabetes mellitus with hyperglycemia; E78.5 Hyperlipidemia, unspecified; E11.69 Type 2 diabetes mellitus with other specified complication
CPT/HCPCS: 36415; 80053; 80061; 82043; 82570; 83036; 83721; 84443; 85025

== ENCOUNTER → 2025-04-10 14:21 | Outpatient (REF) | payer MEDICARE, OTHER, SELFPAY | LOC: RAD 14:21 | PROVIDERS: ATTENDING PHYSICIAN Internal Medicine Hematology & Oncology; FAMILY PHYSICIAN Family Medicine | DX: C83.89 Other non-follicular lymphoma, extranodal and solid organ sites (principal); R22.32 Localized swelling, mass and lump, left upper limb; D50.9 Iron deficiency anemia, unspecified; C43.72 Malignant melanoma of left lower limb, including hip | CPT/HCPCS: 70470; Q9967 ==

== ENCOUNTER → 2025-04-19 08:52 | Outpatient (REF) | payer MEDICARE, OTHER, SELFPAY ==
[2025-04-19 09:54] LABS: Hematocrit 37.4 % (39.0-52.0); Hemoglobin 12.2 g/dL (13.0-18.0); Mean Corp Hgb Conc. 32.6 g/dL (33.0-37.0); Mean Corpuscular Hgb 28.7 pg (27.0-31.0); Mean Platelet Volume 9.6 fL (7.4-10.4); Platelet Count 244 10^3/uL (130-400); Red Blood Cell Count 4.25 10^6/uL (4.70-6.10); Red Cell Dist. Width 13.2 % (11.5-14.5); White Blood Cell Count 3.8 10^3/uL (4.8-10.8)
[2025-04-19 10:36] LABS: ALT (SGPT) < 10 U/L (0-50); AST (SGOT) 17 U/L (17-59); Albumin 4.1 g/dl (3.5-5.0); Alkaline Phosphatase 87 U/L (38-126); Blood Urea Nitrogen 18 mg/dl (9-20); Calcium 9.4 mg/dl (8.4-10.2); Carbon Dioxide 28 mmol/L (22-30); Chloride 109 mmol/L (98-107); Glucose 124 mg/dl (70-99); Potassium 4.2 mmol/L (3.5-5.1); Sodium 144 mmol/L (135-145); Total Bilirubin 0.4 mg/dl (0.2-1.3); Total Protein 7.2 g/dl (6.3-8.2); eGFR > 60.00
[2025-04-19 10:51] LABS: Absolute Neutrophils -Man Diff 0.4 10^3/uL (1.4-6.5); Band Neutrophils 3 % (0-3); Lymphocytes 66 % (20-51); Monocytes 11 % (2-9); Segmented Neutrophils 8 % (42-75)
[2025-04-19 10:53] LABS: Anisocytosis Slight; Hypochromasia Slight; Normal RBC Morphology No; Ovalocytes Slight; Platelets Checked Yes; Total Cells Counted 100
[2025-04-19 11:35] LABS: Free T4 0.97 ng/dl (0.78-2.19)
== END ==
LOC: RAD 08:52
PROVIDERS: ATTENDING PHYSICIAN Internal Medicine Hematology & Oncology; FAMILY PHYSICIAN Nurse Practitioner Adult Health
DX: C83.89 Other non-follicular lymphoma, extranodal and solid organ sites (principal); D50.9 Iron deficiency anemia, unspecified; R53.82 Chronic fatigue, unspecified; C43.72 Malignant melanoma of left lower limb, including hip; R22.32 Localized swelling, mass and lump, left upper limb
CPT/HCPCS: 36415; 71260; 74177; 80053; 84439; 84443; 85025; Q9967

== ENCOUNTER → 2025-05-13 14:53 | Outpatient (REF) | payer MEDICARE, OTHER, SELFPAY ==
[2025-05-13 17:01] LABS: TSH Reflex To Free T4 1.72 uIU/ml (0.47-4.68)
[2025-05-13 17:39] LABS: Hematocrit 37.3 % (39.0-52.0); Hemoglobin 12.2 g/dL (13.0-18.0); Mean Corp Hgb Conc. 32.7 g/dL (33.0-37.0); Mean Corpuscular Hgb 28.6 pg (27.0-31.0); Mean Corpuscular Volume 87.4 fL (80.0-94.0); Mean Platelet Volume 9.6 fL (7.4-10.4); Platelet Count 213 10^3/uL (130-400); Red Blood Cell Count 4.27 10^6/uL (4.70-6.10); Red Cell Dist. Width 13.3 % (11.5-14.5); White Blood Cell Count 3.2 10^3/uL (4.8-10.8)
[2025-05-13 19:32] LABS: Absolute Neutrophils -Man Diff 0.2 10^3/uL (1.4-6.5); Anisocytosis Slight; Atypical Lymphocytes 2 %; Band Neutrophils 0 % (0-3); Eosinophils 6 % (0-6); Lymphocytes 62 % (20-51); Monocytes 22 % (2-9); Normal RBC Morphology No; Platelets Checked Yes; Segmented Neutrophils 8 % (42-75)
[2025-05-13 19:33] LABS: Hypochromasia Slight; Macrocytosis Slight; Total Cells Counted 100
== END ==
LOC: REG 14:53
PROVIDERS: ATTENDING PHYSICIAN Internal Medicine Hematology & Oncology; OTHER PHYSICIAN Family Medicine
DX: E03.9 Hypothyroidism, unspecified (principal); C83.89 Other non-follicular lymphoma, extranodal and solid organ sites; R22.32 Localized swelling, mass and lump, left upper limb; D50.9 Iron deficiency anemia, unspecified; C43.72 Malignant melanoma of left lower limb, including hip; R53.82 Chronic fatigue, unspecified
CPT/HCPCS: 36415; 84443; 85025

== ENCOUNTER → 2025-05-27 12:44 | Outpatient (REF) | payer MEDICARE, OTHER, SELFPAY | LOC: RCS 12:44 | PROVIDERS: ATTENDING PHYSICIAN Nurse Practitioner; FAMILY PHYSICIAN Family Medicine | DX: R07.9 Chest pain, unspecified (principal) | CPT/HCPCS: 93306 ==

== ENCOUNTER → 2025-05-27 14:48 | Outpatient (REF) | payer MEDICARE, OTHER, SELFPAY ==
[2025-05-27 15:23] LABS: Hematocrit 35.9 % (39.0-52.0); Mean Corp Hgb Conc. 33.4 g/dL (33.0-37.0); Mean Corpuscular Hgb 28.8 pg (27.0-31.0); Mean Corpuscular Volume 86.3 fL (80.0-94.0); Mean Platelet Volume 9.9 fL (7.4-10.4); Platelet Count 267 10^3/uL (130-400); Red Blood Cell Count 4.16 10^6/uL (4.70-6.10); White Blood Cell Count 2.9 10^3/uL (4.8-10.8)
[2025-05-27 15:51] LABS: Absolute Neutrophils -Man Diff 0.5 10^3/uL (1.4-6.5); Band Neutrophils 1 % (0-3); Lymphocytes 59 % (20-51); Monocytes 16 % (2-9); Segmented Neutrophils 17 % (42-75)
[2025-05-27 15:52] LABS: Eosinophils 7 % (0-6); Normal RBC Morphology Yes; Platelets Checked Yes
[2025-05-27 15:53] LABS: Total Cells Counted 100
== END ==
LOC: OIDL 14:48
PROVIDERS: ATTENDING PHYSICIAN Internal Medicine Hematology & Oncology
DX: C83.89 Other non-follicular lymphoma, extranodal and solid organ sites (principal); R22.32 Localized swelling, mass and lump, left upper limb; D50.9 Iron deficiency anemia, unspecified; C43.72 Malignant melanoma of left lower limb, including hip; R53.82 Chronic fatigue, unspecified
CPT/HCPCS: 85025

== ENCOUNTER → 2025-05-30 08:57 | Outpatient (REF) | payer MEDICARE, OTHER, SELFPAY | LOC: RAD 08:57 | PROVIDERS: ATTENDING PHYSICIAN Nurse Practitioner; FAMILY PHYSICIAN Family Medicine; OTHER PHYSICIAN Nurse Practitioner Family | DX: M79.89 Other specified soft tissue disorders (principal); I48.0 Paroxysmal atrial fibrillation; E11.9 Type 2 diabetes mellitus without complications; I73.9 Peripheral vascular disease, unspecified; I25.10 Atherosclerotic heart disease of native coronary artery without angina pectoris; M79.604 Pain in right leg | CPT/HCPCS: 93880; 93970 ==

== ENCOUNTER → 2025-06-12 10:21 | Outpatient (REF) | payer MEDICARE, OTHER, SELFPAY ==
[2025-06-12 11:38] LABS: Hematocrit 38.0 % (39.0-52.0); Hemoglobin 12.4 g/dL (13.0-18.0); Mean Corp Hgb Conc. 32.6 g/dL (33.0-37.0); Mean Corpuscular Volume 88.2 fL (80.0-94.0); Platelet Count 289 10^3/uL (130-400); Red Cell Dist. Width 13.2 % (11.5-14.5)
[2025-06-12 12:02] LABS: Absolute Neutrophils -Man Diff 1.1 10^3/uL (1.4-6.5); Normal RBC Morphology Yes; Platelets Checked Yes; Total Cells Counted 100
[2025-06-12 12:36] LABS: C-Reactive Protein 18.50 mg/L (0.0-10.00)
[2025-06-12 13:08] LABS: Glycohemoglobin (HgbA1c) 5.8 % (4.0-5.6)
[2025-06-12 13:30] LABS: AST (SGOT) 17 U/L (17-59); Albumin 4.4 g/dl (3.5-5.0); Alkaline Phosphatase 85 U/L (38-126); Blood Urea Nitrogen 9 mg/dl (9-20); Calcium 9.4 mg/dl (8.4-10.2); Carbon Dioxide 28 mmol/L (22-30); Chloride 106 mmol/L (98-107); Glucose 114 mg/dl (70-99); HDL Cholesterol 46 mg/dl; LDL Cholesterol, Calculated 88 mg/dl; Potassium 4.4 mmol/L (3.5-5.1); Sodium 140 mmol/L (135-145); Total Protein 7.8 g/dl (6.3-8.2); Very Low Density Lipoprotein 22 mg/dl (0-30); eGFR > 60.00
[2025-06-12 13:32] LABS: ALT (SGPT) < 10 U/L (0-50)
[2025-06-17 08:02] LABS: Calprotectin, Fecal 16 ug/g (<=49)
== END ==
LOC: REG 10:21
PROVIDERS: ATTENDING PHYSICIAN Specialist; OTHER PHYSICIAN Family Medicine
DX: D70.9 Neutropenia, unspecified (principal); R19.7 Diarrhea, unspecified; E11.65 Type 2 diabetes mellitus with hyperglycemia; I25.10 Atherosclerotic heart disease of native coronary artery without angina pectoris; I25.119 Atherosclerotic heart disease of native coronary artery with unspecified angina pectoris; E11.69 Type 2 diabetes mellitus with other specified complication; E78.5 Hyperlipidemia, unspecified
CPT/HCPCS: 36415; 80053; 80061; 83036; 83993; 84443; 85025; 85652; 86140; 87045; 87046; 87324; 87328; 87329; 87427; 87449

== ENCOUNTER → 2025-06-19 06:46 | Outpatient (REF) | payer MEDICARE, OTHER, SELFPAY ==
[2025-06-19] VITALS (10 sets, daily range): BP systolic 70–120; BP diastolic 58–78
[2025-06-19 07:30] LABS: INR 1.08; PT 14.4 Sec (11.4-14.6)
[2025-06-19 07:33] LABS: Hematocrit 32.3 % (39.0-52.0); Hemoglobin 10.9 g/dL (13.0-18.0); Mean Corp Hgb Conc. 33.7 g/dL (33.0-37.0); Mean Corpuscular Volume 85.4 fL (80.0-94.0); Platelet Count 248 10^3/uL (130-400); Red Cell Dist. Width 13.3 % (11.5-14.5)
[2025-06-19] MEDS: ATIVAN 0.5 MG PO (07:50)
[2025-06-19 08:17] LABS: Absolute Neutrophils -Man Diff 1.0 10^3/uL (1.4-6.5)
[2025-06-19 08:18] LABS: Platelets Checked Yes
[2025-06-19 08:19] LABS: Normal RBC Morphology Yes; Total Cells Counted 100
== END ==
LOC: RADI 06:46
PROVIDERS: ATTENDING PHYSICIAN Internal Medicine Hematology & Oncology; FAMILY PHYSICIAN Family Medicine
DX: C83.89 Other non-follicular lymphoma, extranodal and solid organ sites (principal); C43.72 Malignant melanoma of left lower limb, including hip
CPT/HCPCS: 36415; 38222; 77012; 85025; 85610; 88305; 88311; 88312; 88313

== ENCOUNTER 2025-07-09 06:17 | Day surgery (SDC) | payer MEDICARE, OTHER, SELFPAY ==
[2025-07-09 14:06] LABS: Glucose - Point of Care 111 mg/dl (70-99)
== END 2025-07-09 15:07 | disposition home or self-care (01) ==
LOC: GI 06:17
PROVIDERS: ATTENDING PHYSICIAN Specialist
DX: K52.9 Noninfective gastroenteritis and colitis, unspecified (principal); K57.30 Diverticulosis of large intestine without perforation or abscess without bleeding; R13.10 Dysphagia, unspecified; K22.2 Esophageal obstruction; Z98.84 Bariatric surgery status; K52.831 Collagenous colitis
CPT/HCPCS: 45380; 43249; 82962; 87324; 87449; 88305

== ENCOUNTER → 2025-07-15 10:45 | Outpatient (REF) | payer MEDICARE, OTHER, SELFPAY ==
[2025-07-15 11:41] LABS: Hematocrit 34.5 % (39.0-52.0); Hemoglobin 11.1 g/dL (13.0-18.0); Mean Corp Hgb Conc. 32.2 g/dL (33.0-37.0); Mean Corpuscular Volume 86.9 fL (80.0-94.0); Platelet Count 237 10^3/uL (130-400); Red Cell Dist. Width 13.4 % (11.5-14.5)
[2025-07-15 12:06] LABS: HDL Cholesterol 44 mg/dl; Iron 88 ug/dl (49-181); LDL Cholesterol, Calculated 93 mg/dl; Very Low Density Lipoprotein 18 mg/dl (0-30)
[2025-07-15 12:16] LABS: Total Iron Binding Capacity 244 ug/dl (261-462)
[2025-07-15 12:43] LABS: Ferritin 133.0 ng/ml (17.9-464.0)
[2025-07-15 12:49] LABS: Absolute Neutrophils -Man Diff 1.0 10^3/uL (1.4-6.5); Normal RBC Morphology Yes; Platelets Checked Yes
[2025-07-15 12:50] LABS: Reticulocyte Count 1.6 % (0.4-2.8); Total Cells Counted 100
[2025-07-15 13:14] LABS: Folate 9.9 ng/ml (2.76-20); Vitamin B12 502 pg/ml (239-931)
== END ==
LOC: REG 10:45
PROVIDERS: ATTENDING PHYSICIAN Internal Medicine Hematology & Oncology; FAMILY PHYSICIAN Family Medicine; REFERRING PHYSICIAN Internal Medicine Cardiovascular Disease
DX: C83.89 Other non-follicular lymphoma, extranodal and solid organ sites (principal); R22.32 Localized swelling, mass and lump, left upper limb; D50.9 Iron deficiency anemia, unspecified; C43.72 Malignant melanoma of left lower limb, including hip; R53.82 Chronic fatigue, unspecified; I73.9 Peripheral vascular disease, unspecified; I70.90 Unspecified atherosclerosis; E78.5 Hyperlipidemia, unspecified; D64.9 Anemia, unspecified; Z79.899 Other long term (current) drug therapy
CPT/HCPCS: 36415; 80061; 82607; 82728; 82746; 83540; 83550; 84443; 85025; 85045

== ENCOUNTER → 2025-08-14 11:40 | Outpatient (REF) | payer MEDICARE, OTHER, SELFPAY ==
[2025-08-14 12:26] LABS: INR 1.00; PT 13.7 Sec (11.4-14.6)
[2025-08-14 12:27] LABS: APTT 33.8 Sec (23.4-35.0)
[2025-08-14 13:14] LABS: ALT (SGPT) 12 U/L (0-50); AST (SGOT) 17 U/L (17-59); Albumin 4.2 g/dl (3.5-5.0); Alkaline Phosphatase 81 U/L (38-126); Blood Urea Nitrogen 16 mg/dl (9-20); Calcium 9.2 mg/dl (8.4-10.2); Carbon Dioxide 30 mmol/L (22-30); Chloride 104 mmol/L (98-107); Glucose 122 mg/dl (70-99); Potassium 4.3 mmol/L (3.5-5.1); Sodium 141 mmol/L (135-145); Total Protein 7.4 g/dl (6.3-8.2); eGFR > 60.00
== END ==
LOC: REG 11:40
PROVIDERS: ATTENDING PHYSICIAN Otolaryngology; FAMILY PHYSICIAN Family Medicine; REFERRING PHYSICIAN Internal Medicine Hematology & Oncology
DX: G47.33 Obstructive sleep apnea (adult) (pediatric) (principal); A41.9 Sepsis, unspecified organism
CPT/HCPCS: 36415; 80053; 85610; 85730

== ENCOUNTER → 2025-08-22 07:05 | Outpatient (REF) | payer MEDICARE, OTHER, SELFPAY | LOC: HWRCS 07:05 | PROVIDERS: ATTENDING PHYSICIAN Internal Medicine Cardiovascular Disease; FAMILY PHYSICIAN Family Medicine | DX: R07.9 Chest pain, unspecified (principal) | CPT/HCPCS: 78452; 93017; A9500; J2785 ==

== ENCOUNTER 2025-08-23 06:11 | Day surgery (SDC) | payer MEDICARE, OTHER, SELFPAY ==
[2025-08-23] MEDS: AFRIN NASAL SPRAY 4 SPRAYS NASAL (13:59)
[2025-08-23 14:00] VITALS: BP 117/58
[2025-08-23] MEDS: NORMOSOL-R/PLASMALYTE-A 1000 IV (14:00)
[2025-08-23 14:14] LABS: Glucose - Point of Care 109 mg/dl (70-99)
[2025-08-23 14:29] VITALS: BMI 27.9
[2025-08-23 15:52] VITALS: BP 95/53
[2025-08-23 16:00] VITALS: BP 111/64
[2025-08-23 16:15] VITALS: BP 112/58
== END 2025-08-23 16:30 | disposition home or self-care (01) ==
LOC: SDS 06:11
PROVIDERS: ATTENDING PHYSICIAN Otolaryngology
DX: G47.33 Obstructive sleep apnea (adult) (pediatric) (principal)
CPT/HCPCS: 42975; 82962

== ENCOUNTER → 2025-09-04 08:02 | Outpatient (REF) | payer MEDICARE, OTHER, SELFPAY | LOC: DHSLP 08:02 | PROVIDERS: ATTENDING PHYSICIAN Internal Medicine Critical Care Medicine; FAMILY PHYSICIAN Family Medicine | DX: G47.00 Insomnia, unspecified (principal); G47.61 Periodic limb movement disorder; R06.83 Snoring | CPT/HCPCS: 95810 ==

== ENCOUNTER → 2025-10-14 08:26 | Outpatient (REF) | payer MEDICARE, OTHER, SELFPAY ==
[2025-10-14 10:11] LABS: ALT (SGPT) < 10 U/L (0-50); AST (SGOT) 16 U/L (17-59); Albumin 4.1 g/dl (3.5-5.0); Alkaline Phosphatase 85 U/L (38-126); Blood Urea Nitrogen 15 mg/dl (9-20); Calcium 9.2 mg/dl (8.4-10.2); Carbon Dioxide 30 mmol/L (22-30); Chloride 103 mmol/L (98-107); Glucose 136 mg/dl (70-99); HDL Cholesterol 40 mg/dl; LDL Cholesterol, Calculated 59 mg/dl; Potassium 4.1 mmol/L (3.5-5.1); Sodium 138 mmol/L (135-145); Total Protein 7.7 g/dl (6.3-8.2); Very Low Density Lipoprotein 11 mg/dl (0-30); eGFR > 60.00
[2025-10-14 10:24] LABS: Glycohemoglobin (HgbA1c) 6.0 % (4.0-5.9)
[2025-10-14 11:17] LABS: Hematocrit 36.0 % (39.0-52.0); Hemoglobin 11.8 g/dL (13.0-18.0); Mean Corp Hgb Conc. 32.8 g/dL (33.0-37.0); Mean Corpuscular Volume 85.9 fL (80.0-94.0); Platelet Count 250 10^3/uL (130-400); Red Cell Dist. Width 13.2 % (11.5-14.5)
[2025-10-14 11:18] LABS: Absolute Neutrophils -Man Diff 0.3 10^3/uL (1.4-6.5)
[2025-10-14 11:20] LABS: Normal RBC Morphology No; Platelets Checked Yes
[2025-10-14 11:21] LABS: Anisocytosis Slight; Hypochromasia Slight; Ovalocytes Slight; Total Cells Counted 100
[2025-10-15 14:33] LABS: Source Blood
== END ==
LOC: REG 08:26
PROVIDERS: ATTENDING PHYSICIAN Family Medicine; OTHER PHYSICIAN Nurse Practitioner Adult Health; REFERRING PHYSICIAN Internal Medicine Hematology & Oncology
DX: E11.9 Type 2 diabetes mellitus without complications (principal); E78.5 Hyperlipidemia, unspecified; C83.89 Other non-follicular lymphoma, extranodal and solid organ sites; R22.32 Localized swelling, mass and lump, left upper limb; D50.9 Iron deficiency anemia, unspecified; C43.72 Malignant melanoma of left lower limb, including hip; R53.82 Chronic fatigue, unspecified
CPT/HCPCS: 36415; 80053; 80061; 83036; 84443; 85025

== ENCOUNTER → 2025-10-23 15:56 | Outpatient (REF) | payer MEDICARE, OTHER, SELFPAY | LOC: REG 15:56 | PROVIDERS: ATTENDING PHYSICIAN Internal Medicine Hematology & Oncology | DX: C83.89 Other non-follicular lymphoma, extranodal and solid organ sites (principal); R22.32 Localized swelling, mass and lump, left upper limb; D50.9 Iron deficiency anemia, unspecified; C43.72 Malignant melanoma of left lower limb, including hip; R53.82 Chronic fatigue, unspecified | CPT/HCPCS: 36415; 86021 ==

== ENCOUNTER 2025-11-07 03:18 | Emergency (ER) | payer MEDICARE, OTHER, SELFPAY ==
[2025-11-07] VITALS (9 sets, daily range): BP systolic 78–104; BP diastolic 48–63
--- NOTE | 2025-11-07 03:42 | ED.GENMED ---
History of Present Illness
General
Chief Complaint: Fall
Source: patient, ambulance crew and previous hospital records
Exam Limitations: none
Time Seen by Provider: 11/07/25 03:40
Nursing documentation reviewed up to this point in time: agreed with
History of Present Illness
History of Present Illness:
This is a 75-year-old gentleman who resides in a [facility] house setting. He has history of neuropathy, difficulty with balance, COPD, obstructive sleep apnea, A-fib, CHF, CAD, hypertension, pacemaker, diabetes, remote history of prostate cancer,
Non-Hodgkin's lymphoma. Who presents via EMS after suffering a slip and fall, falling forward striking his head, landing on his left shoulder. He complains of severe left shoulder pain, unable to move his shoulder as well as a headache. He also
notes some abrasions to bilateral anterior knees and left side of his head.
He is chronically maintained on Plavix as well as low-dose aspirin.
He states over the past month or more his blood pressure has been running low with systolic in the 80s to 90, diastolic 50 to 60s. He states when his blood pressure runs low, he has more difficulty with ambulation, unsteady on his feet. He uses a
walking stick to aid in ambulation.
He has an appointment with his veneer stapler, Иван Herrera on November 18.
The patient mentioned having a cervical spinal fusion from C2 to C7 with hardware in place and reports mild neck pain, feels this is at his baseline.
Past History
Past History
ED Past Medical History: Arrthythmia (A FIB), CAD, Cancer (Melanoma, B-cell Non Hodgkins lymphoma, Prostate CA), COPD, GERD, HTN, Hypercholesterolemia, IDDM, Psychiatric (Anxiety, Depression) and Other (Neuropathy, Balance issues, Tremors, CPAP,
AAA, Iron def anemia, ADHD)
ED Past Surgical History: Cardiac (Pacemaker, Stents X 6 (two are occluded) ), Orthopedic (C2-C7 fusion, Left ankle surgery, Right total hip replacement, Right femoral bypass, ) and Other (Stent left groin, Gastric bypass, Cataracts)
Social History
Tobacco: Former smoker
Alcohol: None
Drug: None
Personal:
Living: with roommate
Employment: Retired
Family History
Family History: Other (Noncontributory)
Phy Exam
Physical Exam
Physical Exam:
TRAUMA EXAM:
VITAL SIGNS: Vital signs reviewed, cooperative
DISTRESS: In mild distress related to shoulder pain. Easily communicative.
EYES: Pupils reactive, no orbital trauma
NOSE: No deformity or epistaxis
FACE AND SCALP: 2 cm superficial abrasion/contusion left lateral brow. Minimal local tenderness to palpation. No facial trauma. external canals no blood
NECK: Supple, no midline bony tenderness. Moderately restricted range of motion appears chronic in nature.
BACK: Back nontender, pelvis stable to compression
RESPIRATORY: No distress, breath sounds normal, no tender chest wall
CARDIAC: No murmur, pulses equal and strong
ABDOMEN: Soft nontender bowel sounds normal
SKIN: Warm and dry, minimally pale in color. Fair turgor.
EXTREMITIES: Moderate soft tissue swelling and focal deformity of left shoulder with anterior fullness. Significant tenderness about the left shoulder with markedly limited range of motion of left shoulder related to pain. There is no tenderness
to the upper arm nor elbow nor forearm. Peripheral pulses are full and equal bilaterally. Hand grasps are full and equal bilaterally. Sensation and strength intact. Rapid capillary refill. There are superficial circular abrasions bilateral
anterior knees. No soft tissue swelling nor palpable tenderness.
NEUROLOGICAL: Alert, oriented, no motor deficits
PSYCH: Mood affect normal
Course
Orders/Labs/Results
Orders:
Orders
11/07/25 03:49
Ice Pack-Treatment DIRECTED
Location: left shoulder
11/07/25 03:50
CT Cervical Spine W/o Iv Contr Urgent
Comment:
Reason For Exam: fall, head injury, L shoulde injury, post neck ester
CR Shoulder, Trauma - Left Urgent
Comment:
Reason For Exam: fall, L shoulder pain
11/07/25 03:51
CT Head W/o Iv Contrast Urgent
Comment:
Reason For Exam: fall, head injury, on plavix
11/07/25 03:52
Electrocardiogram (*1) Urgent
Reason for Study: Fatigue / Weakness
EKG- Treatment ONCE
0.9% Sodium Chloride 500 ml [Nss] 500 ml IV BOLUS
Morphine Sulfate 2 mg IV NOW STA
11/07/25 03:58
Complete Blood Count/With Diff Urgent
Comprehensive Metabolic Panel Urgent
11/07/25 05:40
Splints/Slings/Crut- Treatment ONCE
Crutches: No
Sling to: Left Arm
Location: Left
Type of Splint: Long Arm
11/07/25 05:41
0.9% Sodium Chloride 500 ml [Nss] 500 ml IV BOLUS
11/07/25 05:44
Orthostatic VS- Treatment ONCE
Abnormal Lab Results
11/07/25
03:58
RBC 3.96 L 10^6/uL
(4.70-6.10)
Hgb 11.0 L g/dL
(13.0-18.0)
Hct 33.3 L %
(39.0-52.0)
Absolute Monos (auto) 0.8 H 10^3/uL
(0.1-0.6)
Neutrophils % 27.1 L %
(42.2-75.2)
Monocytes % 15.0 H %
(1.7-9.3)
Eosinophils % 7.6 H %
(0-6)
BUN 23 H mg/dl
(9-20)
Glucose 136 H mg/dl
(70-99)
11/07/25 03:58
11/07/25 03:58
Vital Signs
Initial and Last Documented VS:
Initial Vital Signs
Temp Pulse Resp BP Pulse Ox
97.1 F 70 13 99/61 96
11/07/25 03:20 11/07/25 03:20 11/07/25 03:20 11/07/25 03:20 11/07/25 03:20
Last Documented Vital Signs
Temp Pulse Resp BP Pulse Ox
97.1 F 70 14 102/62 94
11/07/25 03:20 11/07/25 05:30 11/07/25 05:30 11/07/25 05:00 11/07/25 05:30
Procedures
Splint Check
Splint checked by provider?: Yes
Circulation/Movement/Sensation post splint application: brisk cap refill (Left arm splint initially applied. Not long enough and must be redone to cover the upper arm.) and pain sensation
MDM/Problems Addressed
Differential Diagnosis Includes:
DIFFERENTIAL DIAGNOSIS
The Differential Diagnosis includes, in no particular order and is not limited to:
- Left shoulder fracture
- Left shoulder dislocation
- Post-fall contusion
- Traumatic brain injury
- Syncope secondary to hypotension
- Cervical spine injury
- Exacerbation of neuropathy
- Hypertension management issue
- Blood pressure medication side effects
- Orthostatic hypotension?
MDM/Problems Addressed:
Mechanical fall with acute left shoulder pain, closed head injury
Low blood pressure.
Significant concern for left shoulder fracture, other consideration is dislocation.
As patient maintained on Plavix, concern for traumatic intracranial injury.
History of cervical spinal fusion. With head injury, left shoulder injury, must consider potential C-spine injury/distracting injury thus we will check CT of the head, CT cervical spine and x-ray left shoulder
Will medicate for pain with low-dose morphine and initiate IV fluids.
Will check labs, EKG and continue monitoring coordinator.
Chronic conditions affecting care:
History of A-fib, pacemaker, chronically maintained on Plavix, low-dose aspirin.
Reports hypotension, ongoing over the past month with resultant lightheadedness 'brain fog' and unsteady gait
Chronic conditions affecting care: DM and CAD
*Radiology
Radiology exam reviewed: preliminary read by ED provider (Left shoulder x-ray reveals fracture proximal humerus. Minimal angulation.) and radiology read reviewed (CT of the head and cervical spine show no acute traumatic findings)
*Pulse Oximetry
SaO2: 96
Oxygen Mode of Delivery: Room air
Patient hypoxic: yes
*EKG
Interpreted by ED Provider?: Yes
Comparison EKG: changes noted (Paced rhythm has replaced sinus tachycardia noted July 2024)
Rate: normal
Rhythm: other (Atrial paced, ventricular sensed at a rate of 70)
[place]: normal axis
Interval: first degree heart block (Atrial paced with prolonged AV conduction)
QRS Pattern: right bundle branch block
Ischemia: non-specific ST changes
*Occupational Therapy Aide Interpretation
Rate: normal
Rhythm: other (Atrial paced, ventricular sensed)
*Critical Care Note
Total Time (30-74mins, 75-104mins- exclusive of procedures): Not Applicable
Update Note
Update Note:
05:45
CT head and cervical spine showed no acute traumatic findings
Left shoulder x-ray reveals fracture proximal humerus.
Patient will be placed in a long-arm splint and arm sling.
BP improving with IV fluids. Pain improved with ice and a small dose of morphine.
Labs reveal mild but stable anemia.
Mildly elevated BUN, concerning for an element of dehydration. Will continue IV fluids, continue to monitor blood pressure and once patient is splinted and in a sling will attempt to ambulate and check orthostatic vital signs.
ED Attending Note
-
Portions of this chart may have been created with voice recognition software.� Occasional wrong word or��sound alike� substitutions may have occurred due to the inherent limitations of voice recognition software.
Discharge Plan
Departure
Patient Disposition: Home (Routine Discharge)
Date of Disposition: 11/07/25
Time of Disposition: 06:29
Patient with high blood pressure during this ER visit?: No
Condition: Good
Discharge Problem:
Closed fracture of left proximal humerus, Chronic hypotension, Abrasion of both knees
Instructions: Preventing falls in adults, Upper Arm Fracture ED, Managing low blood pressure from your medicines
Prescriptions:
New
tramadol 50 mg tablet
50 mg PO Q6H PRN (Reason: Pain) Qty: 30 0RF
No Action
pravastatin 40 MG tablet
80 mg PO DAILY
aspirin 81 MG tablet,delayed release (DR/EC)
81 mg PO HS
nitroglycerin 0.4 MG tablet, sublingual
0.4 mg sublingual [id number] PRN (Reason: chest pain)
metoprolol succinate 50 mg Tablet Extended Release 24 Hr
50 mg PO HS
Janumet XR 100-1,000 mg Tablet, Er Multiphase 24 Hr
1 tab PO DAILY
clopidogrel 75 MG tablet
75 mg PO DAILY
gabapentin 600 mg Tablet
600 mg PO TID
therapeutic multivitamin Tablet
1 tab PO DAILY
isosorbide mononitrate 60 mg Tablet Extended Release 24 Hr
120 mg PO DAILY
levothyroxine 50 mcg Tablet
50 mcg PO DAILY
Vitamin B-12 50 mcg Lozenge
50 mcg PO DAILY
duloxetine 30 mg Capsule,Delayed Release(Dr/Ec)
60 mg PO DAILY
Referrals:
Vincent Ricardo MD [Active, Orthopedics] - Call in 1-3 days for appt
Barbara Quezada DO [Family Provider, Family Practice]
Interventions
Interventions:
*Risk Screen - Suicide Last Done: 11/07/25 03:27
*General Assessment Last Done: 11/07/25 03:30
*Neglect/Abuse Screening Last Done: 11/07/25 03:27
*ED COVID-19 Vaccine History Last Done: 11/07/25 03:27
*ED Influenza Vaccine History Last Done: 11/07/25 03:27
[facility] Fall Risk Assessment Tool Last Done: 11/07/25 03:27
ED-Musculoskeletal Assessment Last Done: 11/07/25 03:28
ED- Neurological Assessment Last Done: 11/07/25 03:28
ED-Skin Assessment Last Done: 11/07/25 03:28
Discharge Date and Time
Print Language: ALBANIAN
[2025-11-07] MEDS: MORPHINE SULFATE 2 MG IV (04:00)
[2025-11-07 04:04] LABS: Hematocrit 33.3 % (39.0-52.0); Hemoglobin 11.0 g/dL (13.0-18.0); Mean Corp Hgb Conc. 33.0 g/dL (33.0-37.0); Mean Corpuscular Volume 84.1 fL (80.0-94.0); Nucleated Red Blood Cells % 0 % (-); Platelet Count 228 10^3/uL (130-400); Red Cell Dist. Width 13.3 % (11.5-14.5)
[2025-11-07] MEDS: NSS 500 IV ×2 (04:08→06:05)
[2025-11-07 04:30] LABS: ALT (SGPT) 11 U/L (0-50); AST (SGOT) 19 U/L (17-59); Albumin 4.0 g/dl (3.5-5.0); Alkaline Phosphatase 76 U/L (38-126); Blood Urea Nitrogen 23 mg/dl (9-20); Calcium 8.9 mg/dl (8.4-10.2); Carbon Dioxide 26 mmol/L (22-30); Chloride 104 mmol/L (98-107); Estimated Creatinine Clearance 62 ml/min; Glucose 136 mg/dl (70-99); Potassium 4.8 mmol/L (3.5-5.1); Sodium 138 mmol/L (135-145); Total Protein 7.2 g/dl (6.3-8.2); eGFR > 60.00
== END 2025-11-07 08:15 | disposition home or self-care (01) ==
LOC: EMR 03:18
PROVIDERS: EMERGENCY PHYSICIAN Emergency Medicine; FAMILY PHYSICIAN Family Medicine
DX: S42.202A Unspecified fracture of upper end of left humerus, initial encounter for closed fracture (principal); S80.212A Abrasion, left knee, initial encounter; S80.211A Abrasion, right knee, initial encounter; W01.0XXA Fall on same level from slipping, tripping and stumbling without subsequent striking against object, initial encounter; I95.89 Other hypotension; I45.10 Unspecified right bundle-branch block; D64.9 Anemia, unspecified; E11.40 Type 2 diabetes mellitus with diabetic neuropathy, unspecified; I11.0 Hypertensive heart disease with heart failure; I50.9 Heart failure, unspecified; I25.10 Atherosclerotic heart disease of native coronary artery without angina pectoris; I48.91 Unspecified atrial fibrillation; E78.00 Pure hypercholesterolemia, unspecified; I71.40 Abdominal aortic aneurysm, without rupture, unspecified; G47.33 Obstructive sleep apnea (adult) (pediatric); J44.9 Chronic obstructive pulmonary disease, unspecified; K21.9 Gastro-esophageal reflux disease without esophagitis; F41.9 Anxiety disorder, unspecified; F32.A Depression, unspecified; F90.9 Attention-deficit hyperactivity disorder, unspecified type; R26.89 Other abnormalities of gait and mobility; Z79.02 Long term (current) use of antithrombotics/antiplatelets; Z79.82 Long term (current) use of aspirin; Z79.84 Long term (current) use of oral hypoglycemic drugs; Z95.5 Presence of coronary angioplasty implant and graft; Z95.0 Presence of cardiac pacemaker; Z85.46 Personal history of malignant neoplasm of prostate; Z85.72 Personal history of non-Hodgkin lymphomas; Z85.820 Personal history of malignant melanoma of skin; Z87.891 Personal history of nicotine dependence; Z98.84 Bariatric surgery status; Z96.643 Presence of artificial hip joint, bilateral
CPT/HCPCS: 99284; 96374; 96361; 29105; 70450; 72125; 73030; 80053; 85025; 93005